=== PATIENT | male | born 1965 ===

== ENCOUNTER 2019-03-29 10:14 | Inpatient (IN) | payer OTHER, SELFPAY ==
[~2019-03-29 10:14] MED LIST: Heparin 1,000 UNITS/ML VIAL ONE
[2019-03-29 15:11] LABS: ALT (SGPT) 33 U/L (8-55); AST (SGOT) 51 U/L (5-34); Albumin 3.5 g/dL (3.5-5.0); Alkaline Phosphatase 85 U/L (40-110); Anion Gap 27 mmol/L (10-20); BUN (Urea Nitrogen) 103 mg/dL (8.4-25.7); Bilirubin, Total 0.9 mg/dL (0.2-1.2); Calc. Creatinine Clearance 0 mL/min (70-130); Calcium 7.4 mg/dL (7.8-10.44); Carbon Dioxide 18 mmol/L (22-29); Chloride 86 mmol/L (98-107); Estimated GFR-MDRD 3; Glucose 88 mg/dL (70-105); Protein, Total 7.5 g/dL (6.0-8.3); Sodium 124 mmol/L (136-145)
[2019-03-29 15:20] LABS: Potassium 6.9 mmol/L (3.5-5.1)
[2019-03-29 15:36] LABS: Hemoglobin 8.1 g/dL (14.0-18.0); MDiff Complete? YES; Mean Corpuscular HGB CONC 33.9 g/dL (32.0-36.0); Mean Corpuscular Hemoglobin 31.8 pg (27.0-31.0); Mean Corpuscular Volume 93.8 fL (78.0-98.0); Mean Platelet Volume 8.2 fL (7.4-10.4); Platelet Count 275 thou/uL (130-400); RBC Distribution Width 15.3 % (11.5-14.5); Red Blood Cell (RBC) Count 2.55 mill/uL (4.70-6.10); White Blood Cell (WBC) Count 26.8 thou/uL (4.8-10.8)
[2019-03-29 15:37] LABS: Band 1 % (5-11); Eosinophils 2 % (0-10); Lymphocytes 7 % (21-51); Monocytes 14 % (0-10); Neutrophil 76 % (42-75); Platelet Morphology Comment Appears Adequate; Target Cells SLIGHT = 2-5 cells (100X) (0-1/hpf)
[2019-03-29 17:18] LABS: HBSAg Index 0.26 S/CO (0-0.99); Hep B Surf Ag Non-Reactive S/CO (NonReactive)
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
[2019-03-29] MEDS: LOKELMA 10 GM PACKET PO SCH (20:36)
[2019-03-29 21:32] LABS: Potassium 5.8 mmol/L (3.5-5.1)
--- NOTE | 2019-03-30 00:10 | CON ---
DATE OF CONSULTATION: 03/29/2019 CONSULTING PHYSICIAN: Sharan Echols MD REASON FOR CONSULTATION: End-stage renal disease evaluation and care. REASON FOR ADMISSION: Shortness of breath. HISTORY OF PRESENT ILLNESS: A 53-year-old male, who was transferred from [facility] for further evaluation. He has end-stage renal disease and hypertension and was on dialysis Saturday, Saturday, Saturday. Since he was given MSSA suspicion of having after infection, he was transferred over here for further surgical opinion. The patient was fluid overloaded. Potassium was high and has had emergency dialysis. PAST MEDICAL HISTORY: Positive for end-stage renal disease, hypertension. PAST SURGICAL HISTORY: 1. AV fistula placement. 2. Knee arthroscopies. 3. Hip fractures. SOCIAL HISTORY: No smoking, alcohol, or illicit drug abuse. FAMILY HISTORY: Positive for liver disease. ALLERGIES: AMOXICILLIN, CEPHALOSPORIN, OPIOIDS. HOME MEDICATIONS: Reviewed. REVIEW OF SYSTEMS: CONSTITUTIONAL: Negative for weight loss or gain, ability to conduct usual activities. SKIN: Negative for rash, itching. EYES: Negative for double vision, pain. ENT/MOUTH: Negative for nose bleeding, neck stiffness, pain, tenderness. CARDIOVASCULAR: Negative for palpitations, dyspnea on exertion, orthopnea. RESPIRATORY: Negative for shortness of breath, wheezing, cough, hemoptysis, fever or night sweats. GASTROINTESTINAL: Negative for poor appetite, abdominal pain, heartburn, nausea, vomiting, constipation, or diarrhea. GENITOURINARY: Negative for urgency, frequency, dysuria, nocturia. MUSCULOSKELETAL: Negative for pain, swelling. NEUROLOGIC/PSYCHIATRIC: Negative for anxiety, depression. ALLERGY/IMMUNOLOGIC: Negative for skin rash, bleeding tendency. PHYSICAL EXAMINATION: GENERAL: This is a well-built male, in no apparent distress. VITAL SIGNS: Temperature 97.0, pulse 74, respiratory rate 20, blood pressure 117/55. HEENT: Atraumatic, normocephalic. Oral mucosa is moist. NECK: Supple. CV: S1 and S2 heard. Rate and rhythm regular. RESPIRATORY: Clear. GASTROINTESTINAL: Abdomen is soft. MUSCULOSKELETAL: 1+ edema. DERMATOLOGIC: No skin rash. NEUROLOGIC: Alert and awake. PSYCHIATRIC: Mood and affect normal. LABORATORY DATA: Hemoglobin is 8.1, potassium is 6.9, BUN is 103, creatinine is 18.05. ASSESSMENT AND PLAN: 1. End-stage renal disease. Plan is to have emergent dialysis if fistula works. If does not, might need declotting. 2. Edema, controlled. 3. History of hypertension. 4. Anemia of chronic disease. Plan to continue on dialysis as tolerated. Monitor labs closely. We will follow. Job ID: [id number]
[2019-03-30 01:14] LABS: Potassium 6.1 mmol/L (3.5-5.1)
[2019-03-30 04:12] LABS: Anion Gap 25 mmol/L (10-20); BUN (Urea Nitrogen) 95 mg/dL (8.4-25.7); Calc. Creatinine Clearance 7 mL/min (70-130); Calcium 7.8 mg/dL (7.8-10.44); Carbon Dioxide 20 mmol/L (22-29); Chloride 90 mmol/L (98-107); Estimated GFR-MDRD 3; Glucose 107 mg/dL (70-105); Potassium 5.6 mmol/L (3.5-5.1); Sodium 129 mmol/L (136-145)
--- NOTE | 2019-03-30 08:48 | RAD ---
SINGLE VIEW CHEST: Date: 03/30/2019 COMPARISON: None. HISTORY: Evaluate for infection. Cough. FINDINGS: Single view of the chest shows a normal sized cardiomediastinal silhouette. Opacity is seen obscuring the right hemidiaphragm and the right lower lobe. There is a questionable infiltrate in the retrocar diac region. Multiple stents are seen in the right upper extremity. IMPRESSION: Bibasilar infiltrates. POS: CET
[2019-03-30] MEDS ORDERED: Prevnar 13-Val Conj/PF 0.5 ML SYRINGE IM ONE (09:00)
[2019-03-30] MEDS: Stress 600 With Zinc 1 TAB PO SCH (09:00)
[2019-03-30] MEDS: LOKELMA 10 GM PACKET PO SCH ×2 (09:00→21:19)
[2019-03-30] MEDS: Midodrine HCl 5 MG TAB PO SCH (09:00)
[2019-03-30] MEDS: Cinacalcet HCl 30 MG TAB PO SCH (09:00)
[2019-03-30] MEDS ORDERED: FLU VACC QS2019-20(6MOS UP)/PF 60 MCG/0.5 ML SYRINGE IM ONE (09:00)
[2019-03-30] MEDS: Heparin 5,000 UNITS/ML VIAL SC SCH ×2 (09:01→21:18)
[2019-03-30] MEDS: Sevelamer Carbonate 800 MG TAB PO SCH ×3 (09:16→21:18)
[2019-03-30] MEDS ORDERED: Bisacodyl 10 MG SUPP PR PRN (09:54)
[2019-03-30] MEDS ORDERED: Ondansetron PF 4 MG/2 ML Vial IVP PRN (09:54)
[2019-03-30] MEDS ORDERED: Guaifenesin DM 100-10/5 ML UDCUP PO PRN (09:54)
[2019-03-30] MEDS ORDERED: HYDROcodone/Acetaminophen 5/325 mg Tablet PO PRN (09:54)
--- NOTE | 2019-03-30 10:01 | PDOC.HOSPP ---
- Subjective Encounter Date: 03/30/19 Encounter Time: 08:50 Subjective: lethargic but awakens easily, not oriented, follows some verbal stimuli - Objective Vital Signs & Weight: Vital Signs (12 hours) Temp Pulse Resp BP BP Pulse Ox 03/30/19 07:06 98.4 F 75 21 H 100/49 L 95 03/30/19 04:35 98.8 F 85 20 103/50 L 85 L 03/29/19 23:10 99.9 F H 94 16 147/71 H 96 Weight Weight 197 lb 1.492 oz I&O: 03/29/19 03/30/19 03/31/19 06:59 06:59 06:59 Intake Total 240 Output Total 0 Balance 240 Result Diagrams: 03/29/19 14:49 03/30/19 03:24 Hospitalist ROS - Medication Medications: Active Medications Generic Name Dose Route Start Last Admin Trade Name Freq PRN Reason Stop Dose Admin Heparin Sodium (Porcine) 5,000 units 03/30/19 09:00 03/30/19 09:01 Heparin SC 5,000 units Q12HR ASHLEY Administration Sodium Zirconium Cyclosilicate 5 gm 03/29/19 21:00 03/29/19 20:36 Lokelma PO 5 gm BID ASHLEY Administration - Exam General Appearance: ill appearing Eye: PERRL, anicteric sclera ENT: no oropharyngeal lesions, moist mucosa Neck: supple, no JVD Heart: RRR, murmur present Respiratory: no wheezes, rales, rhonchi Gastrointestinal: soft, non-tender, non-distended, normal bowel sounds Extremities: no cyanosis, 1+ LE edema Neurological: cranial nerve grossly intact, no focal deficits Hosp A/P (1) Uremia Code(s): N19 - UNSPECIFIED KIDNEY FAILURE Status: Acute (2) ESRD (end stage renal disease) on dialysis Code(s): N18.6 - END STAGE RENAL DISEASE; Z99.2 - DEPENDENCE ON RENAL DIALYSIS Status: Chronic (3) Acute metabolic encephalopathy Code(s): G93.41 - METABOLIC ENCEPHALOPATHY Status: Acute (4) MSSA bacteremia Code(s): R78.81 - BACTEREMIA Status: Acute (5) Sepsis Code(s): A41.9 - SEPSIS, UNSPECIFIED ORGANISM Status: Acute Qualifiers: Sepsis type: methicillin susceptible Staphylococcus aureus Sepsis acute organ dysfunction status: with acute organ dysfunction Severe sepsis acute organ dysfunction type: encephalopathy Severe sepsis shock status: without septic shock Qualified Code(s): A41.01 - Sepsis due to Methicillin susceptible Staphylococcus aureus; R65.20 - Severe sepsis without septic shock; G93.41 - Metabolic encephalopathy (6) HTN (hypertension) Code(s): I10 - ESSENTIAL (PRIMARY) HYPERTENSION Status: Chronic Qualifiers: Hypertension type: essential hypertension Qualified Code(s): I10 - Essential (primary) hypertension (7) Chronic anemia Code(s): D64.9 - ANEMIA, UNSPECIFIED Status: Chronic (8) Hyperkalemia Code(s): E87.5 - HYPERKALEMIA Status: Acute (9) Metabolic acidosis Code(s): E87.2 - ACIDOSIS Status: Acute - Plan had 2 hr session of HD yesterday and the AV graft got clogged His AV Fistula is not working in left UE d/w , plan is for IR to open up his graft if possible Will consult if his grafts need to be removed due to mssa bacteremia if there is no other source for it consult Pt is encephalopathic and has vol overload with hyperkalemia and uremia, will need urgent HD today continue current meds is on levaquin prognosis guarded May place him on soft restraints, d/w nuclear officer at bedside.
[2019-03-30] MEDS ORDERED: Activase 2 MG VIAL CATH SCH (11:15)
[2019-03-30] MEDS: Acetaminophen 325 MG TAB PO PRN ×2 (13:13→21:17)
--- NOTE | 2019-03-30 14:27 | SPC ---
Right upper extremity dialysis graft fistulogram Sonographic guided vascular access x2 Thrombolysis right upper extremity dialysis graft Percutaneous balloon angioplasty x3 right upper extremity dialysis graft HISTORY: Renal failure. Poor functioning of right upper extremity dialysis graft Fluoroscopy time 9.7 minutes. FINDINGS: After explaining the procedure and answering all questions, the right upper extremity was p repped and draped in usual sterile fashion. Sterile technique, buffered local anesthesia, sonographic guidance, and a 22-gauge needle were used to carefully access the right upper arm dialysi s graft loop on the arterial limb, directed towards the venous outflow. A 5 Greek dilator was placed, and then a 6 Greek sheath was placed. A 5 Greek Berenstein catheter was placed over a 0.035 Glidewire. Imaging showed extensive clot throughout the dialysis graft. The axillary and subclavian vessels and superior vena cava are patent. A second vascular access was obtained with sonographic guidance on the venous limb, directed towards the arterial inflow. 6 Greek sheath was placed. The 5 Greek Berenstein catheter was carefully advanced to the arterial anastomosis. Gentle contrast imaging showed focal areas of high-grade stenos is near the arterial inflow. Clot was present throughout the arterial limb, to the level of the arterial anastomosis which was widely patent. A total of 10 cc liquid containing 4 mg recombinant TPA and 2000 units heparin was carefully placed t hroughout the entirety of the clotted graft. While the clot was left to bathe in the TPA, a 6 mm x 4 cm dilatation balloon was carefully placed over a glide wire to the focal areas of high grade steno ses near the arterial limb. Full bone profile was eventually achieved, relieving the stenoses. The balloon was also sequentially inflated within the apex of the graft and within the venous outflow, re lieving additional strictures and macerating the clot within the graft. Repeat imaging showed significant residual narrowing and significant residual clot throughout the gra ft. An 8 mm x 4 cm balloon was then carefully placed to the areas of high-grade stenoses. Full bone profi le was eventually achieved. Successful relief of the stenoses. The 8 mm balloon was also inflated throughout the apex of the graft and the venous outflow to macerate the clot and further relief steno ses. Balloon was removed. Final imaging showed the graft to be widely patent, although there is marked irregularity of the inner wall of the graft. Contrast material seen around the graft lumen is favored to represent leakage of contrast during initial injections through the recent puncture sites from attempt at dialysis. Sheaths were removed and hemostasis obtained using direct pressure. Patient tolerated the procedure w ell and was returned in unchanged condition. IMPRESSION: Technically successful thrombolysis and angioplasty of right upper extremity dialysis Paulina almonte restoring flow and function.
[2019-03-30] MEDS ORDERED: Iopamidol 300 61% 100 ML VIAL FS ONE (16:44)
--- NOTE | 2019-03-30 16:58 | PRG ---
DATE OF SERVICE: 03/30/2019 SUBJECTIVE: Patient was seen and examined at bedside and overnight events noted. Patient denies any shortness of breath or chest pain or palpitation. No history of nausea or vomiting or diarrhea or fever or chills or cramps. OBJECTIVE: GENERAL: This is a well-built male, in no apparent distress. VITAL SIGNS: Temperature 98.4. Heart rate 75. Respiratory rate 18. Blood pressure 100/49. HEENT: Atraumatic, normocephalic. Oral mucosa is moist NECK: Supple. CARDIOVASCULAR: S1, S2 heard. Rate and rhythm regular. RESPIRATORY: Clear to auscultation. GASTROINTESTINAL: Abdomen is soft. MUSCULOSKELETAL: No tenderness. No edema. DERMATOLOGIC: No skin rash. NEUROLOGIC: Alert and awake and oriented X3. No focal neurologic deficits. Moving all the extremities. PSYCHIATRIC: Mood and affect normal. LABORATORY DATA: Potassium is 5.6, BUN is 95, creatinine is 16.2. ASSESSMENT AND PLAN: 1. End-stage renal disease. Plan is to continue dialysis on Saturday, Saturday, and Saturday. Unfortunately, the patient had a clotted fistula this morning and fortunately IR was able to declot it today. Appreciate help from Interventional Radiology. Possible dialysis access infection. Follow up with Surgery and ID. 2. History of . 3. Anemia of chronic disease. 4. Bacteremia. Follow up cultures and continue antibiotics. PLAN: Plan is to continue dialysis on Saturday, Saturday, and Saturday. Job ID: [id number]
[2019-03-30] MEDS: Senokot S 8.6-50 MG TAB PO PRN (18:13)
[2019-03-30] MEDS: Gabapentin 300 MG CAP PO SCH (21:18)
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
[2019-03-31 05:05] LABS: ALT (SGPT) 28 U/L (8-55); AST (SGOT) 48 U/L (5-34); Albumin 3.4 g/dL (3.5-5.0); Alkaline Phosphatase 83 U/L (40-110); Anion Gap 24 mmol/L (10-20); BUN (Urea Nitrogen) 54 mg/dL (8.4-25.7); BUN/Creatinine Ratio 4.82; Bilirubin, Total 0.9 mg/dL (0.2-1.2); Calc. Creatinine Clearance 10 mL/min (70-130); Calcium 7.7 mg/dL (7.8-10.44); Carbon Dioxide 22 mmol/L (22-29); Chloride 91 mmol/L (98-107); Estimated GFR-MDRD 5; Globulin 4.4 g/dL (2.4-3.5); Glucose 107 mg/dL (70-105); Phosphorus 4.9 mg/dL (2.3-4.7); Potassium 4.6 mmol/L (3.5-5.1); Protein, Total 7.8 g/dL (6.0-8.3); Sodium 132 mmol/L (136-145)
[2019-03-31 05:20] LABS: Eosinophils 1 % (0-10); Hemoglobin 7.7 g/dL (14.0-18.0); Lymphocytes 11 % (21-51); MDiff Complete? YES; Mean Corpuscular HGB CONC 33.6 g/dL (32.0-36.0); Mean Corpuscular Hemoglobin 31.1 pg (27.0-31.0); Mean Corpuscular Volume 92.6 fL (78.0-98.0); Mean Platelet Volume 7.4 fL (7.4-10.4); Monocytes 8 % (0-10); Neutrophil 80 % (42-75); Platelet Count 323 thou/uL (130-400); RBC Distribution Width 15.1 % (11.5-14.5); Red Blood Cell (RBC) Count 2.46 mill/uL (4.70-6.10); Target Cells MODERATE= 6-15 cells (100X) (0-1/hpf); Toxic Granulation SLIGHT; White Blood Cell (WBC) Count 24.3 thou/uL (4.8-10.8)
[2019-03-31] MEDS ORDERED: Vancomycin HCl 1.25 GM in Sodium Chloride 0.9% 250 ML 250 ML IVPB SCH ×2 (07:45→08:00)
[2019-03-31] MEDS ORDERED: Vancomycin HCl 500 MG in Sodium Chloride 0.9% 100 ML IVPB SCH (07:45)
[2019-03-31] MEDS ORDERED: Vancomycin HCl 1.25 GM in Sodium Chloride 0.9% 250 ML 300 ML IVPB SCH (07:45)
[2019-03-31] MEDS ORDERED: HOLD VANCOMYCIN FOR LEVEL >20 FS SCH (07:45)
[2019-03-31] MEDS ORDERED: Vancomycin HCl 1 GM in Premix Bag 1 BAG IVPB SCH (07:45)
[2019-03-31] MEDS: Cinacalcet HCl 30 MG TAB PO SCH (08:57)
[2019-03-31] MEDS: Stress 600 With Zinc 1 TAB PO SCH (08:57)
[2019-03-31] MEDS: Heparin 5,000 UNITS/ML VIAL SC SCH ×2 (08:57→21:06)
[2019-03-31] MEDS: LOKELMA 10 GM PACKET PO SCH ×2 (08:58→21:24)
--- NOTE | 2019-03-31 09:24 | ULT ---
Venous duplex sonogram for vein mapping HISTORY: Renal failure. Failure of multiple dialysis fistula. FINDINGS: Right: Good color and spectral Doppler flow within the internal jugular and subclavian veins. Cephali c vein above the upper arm fistula is 0.4 cm with good color and spectral Doppler flow. The cephalic vein distal to this level and most of the basilic vein are clotted, obscured, and distor ilir due to the multiple previous fistulas. The antecubital vein is measured at 0.1 cm. Veins of the forearm appear to represent collaterals around the clotted fistulas. Flow is seen within the brachial artery to the level of the arteriovenous anastomosis. The brachial artery beyond this point and the ulnar and radial arteries are obscured. Left: Good color and spectral Doppler flow within the arterial structures. Brachial artery 0.5 cm. Ra dial artery 0.2 cm. Ulnar artery 0.2 cm. The internal jugular, subclavian, and axillary vein are patent. Brachial vein mostly obscured. Cephal ic vein is thrombosed, distorted, and obscured due to multiple previous vascular procedures. The basilic vein is patent within the upper arm, measuring 0.5 cm at the level of the proximal humeru s and 0.3 cm at the mid to distal humerus and antecubital fossa. Basilic vein of the forearm is obscured. IMPRESSION: Patent fistula right upper arm. Multiple clotted old fistulous throughout each arm. This distorts and obscures most of the venous structures, many of which are clotted, as there are multiple collaterals throughout the superficial tissues of each arm. For the purposes of any additional hemodialysis vascular access, the only apparent possibility would be a left upper arm fistula from the brachial artery to the basilic vein.
--- NOTE | 2019-03-31 09:26 | CT ---
CT CHEST WITHOUT CONTRAST: Date: 03/31/2019 HISTORY: Abnormal lung exam. Bacteremia. Fever. FINDINGS: Absence of IV contrast reduces the sensitivity of exam, particularly for evaluation of mediastinal, h ilar, and vascular structures. There are vascular calcifications without evidence of aneurysmal dilatation of the thoracic aorta. No pleural or pericardial effusions are seen. There is consolidation in the lower lobes bilaterally, ri ght larger than left. There are air bronchograms in the right consolidation. No pneumothoraces are se en. The tracheobronchial tree appears patent. There are degenerative changes in the spine. There are vascular stents and changes of dialysis fistula in the right upper extremity. Upper abdominal tomogra ms demonstrate atrophic kidneys and renal cysts. IMPRESSION: Bibasilar consolidation, right greater than left, suspicious for pneumonia. POS: OFF
[2019-03-31] MEDS: Sevelamer Carbonate 800 MG TAB PO SCH ×3 (10:18→21:06)
--- NOTE | 2019-03-31 11:02 | PDOC.HOSPP ---
- Subjective Encounter Date: 03/31/19 Encounter Time: 09:45 Subjective: more awake and oriented this am follows verbal stimuli c/p left foot pain - Objective Vital Signs & Weight: Vital Signs (12 hours) Temp Pulse Resp BP BP Pulse Ox 03/31/19 08:00 99.0 F 75 22 H 106/50 L 94 L 03/31/19 07:30 96 03/31/19 03:43 97.2 F L 74 20 92/48 L 93 L 03/31/19 00:00 98.9 F 76 18 106/46 L 97 03/30/19 23:52 101.0 F H 83 20 Weight Weight 176 lb 5.917 oz I&O: 03/30/19 03/31/19 04/01/19 06:59 06:59 06:59 Intake Total 240 550 Output Total 0 2900 Balance 240 -2350 Result Diagrams: 03/31/19 04:33 03/31/19 04:33 Hospitalist ROS - Medication Medications: Active Medications Generic Name Dose Route Start Last Admin Trade Name Freq PRN Reason Stop Dose Admin Acetaminophen 650 mg 03/30/19 09:54 03/30/19 21:17 Tylenol PO 650 mg Q4H PRN Administration Headache/Fever/Mild Pain (1-3) Cinacalcet 60 mg 03/30/19 09:00 03/31/19 08:57 Sensipar PO 60 mg DAILY ASHLEY Administration Gabapentin 300 mg 03/30/19 21:00 03/30/19 21:18 Neurontin PO 300 mg HS ASHLEY Administration Heparin Sodium (Porcine) 5,000 units 03/30/19 09:00 03/31/19 08:57 Heparin SC 5,000 units Q12HR ASHLEY Administration Midodrine 10 mg 03/30/19 09:00 03/30/19 09:00 Proamatine PO Not Given [email or web address] ASHLEY Multivitamins/Zinc 1 tab 03/30/19 09:00 03/31/19 08:57 Stress 600 With Zinc PO 1 tab DAILY ASHLEY Administration Pantoprazole Sodium 40 mg 03/30/19 09:00 03/31/19 08:56 Protonix PO 40 mg DAILY ASHLEY Administration Senna/Docusate Sodium 2 tab 03/30/19 09:54 03/30/19 18:13 Senokot S PO 2 tab BIDPRN PRN Administration Constipation Sevelamer Carbonate 4,000 mg 03/30/19 09:00 03/31/19 10:18 Renvela PO 4,000 mg TID ASHLEY Administration Sodium Zirconium Cyclosilicate 5 gm 03/29/19 21:00 03/31/19 08:58 Lokelma PO 5 gm BID ASHLEY Administration - Exam General Appearance: awake alert Eye: PERRL, anicteric sclera ENT: no oropharyngeal lesions, moist mucosa Neck: supple, no JVD Heart: RRR, no gallops Respiratory: no wheezes, no rales, rhonchi Gastrointestinal: soft, non-tender, non-distended, normal bowel sounds Extremities: 1+ LE edema Extremities - other findings: right UE HD access site has skin ulcers/weeping a bit Neurological: cranial nerve grossly intact, no focal deficits Hosp A/P (1) Uremia Code(s): N19 - UNSPECIFIED KIDNEY FAILURE Status: Resolved (2) ESRD (end stage renal disease) on dialysis Code(s): N18.6 - END STAGE RENAL DISEASE; Z99.2 - DEPENDENCE ON RENAL DIALYSIS Status: Chronic (3) Acute metabolic encephalopathy Code(s): G93.41 - METABOLIC ENCEPHALOPATHY Status: Acute (4) MSSA bacteremia Code(s): R78.81 - BACTEREMIA Status: Acute (5) Sepsis Code(s): A41.9 - SEPSIS, UNSPECIFIED ORGANISM Status: Acute Qualifiers: Sepsis type: methicillin susceptible Staphylococcus aureus Sepsis acute organ dysfunction status: with acute organ dysfunction Severe sepsis acute organ dysfunction type: encephalopathy Severe sepsis shock status: without septic shock Qualified Code(s): A41.01 - Sepsis due to Methicillin susceptible Staphylococcus aureus; R65.20 - Severe sepsis without septic shock; G93.41 - Metabolic encephalopathy (6) HTN (hypertension) Code(s): I10 - ESSENTIAL (PRIMARY) HYPERTENSION Status: Chronic Qualifiers: Hypertension type: essential hypertension Qualified Code(s): I10 - Essential (primary) hypertension (7) Chronic anemia Code(s): D64.9 - ANEMIA, UNSPECIFIED Status: Chronic (8) Hyperkalemia Code(s): E87.5 - HYPERKALEMIA Status: Acute (9) Metabolic acidosis Code(s): E87.2 - ACIDOSIS Status: Acute (10) PNA (pneumonia) Code(s): J18.9 - PNEUMONIA, UNSPECIFIED ORGANISM Status: Acute Qualifiers: Pneumonia type: due to methicillin-sensitive Staphylococcus aureus (MSSA) Laterality: right Lung location: lower lobe of lung Qualified Code(s): J15.211 - Pneumonia due to Methicillin susceptible Staphylococcus aureus (11) Physical deconditioning Code(s): R53.81 - OTHER MALAISE Status: Acute - Plan Had HD yesterday with removal of 3 lts fluids, will have another 2 hr session today, vanc can be given with HD His AV Fistula is not working in left UE both AV grafts in right UE were opened up by IR which had thrombus Appreciate help from and Encephalopathy is clearing up continue current meds is on levaquin po wound care for right UE wounds, PT/OT to mobilize, may need infirmary for dc plan in 48hrs echo is pending to r/o endocarditis CT chest shows pna. patient has been on HD for atleast 20yrs or so per . He says he may not be allergic to pcn and has taken it for prior h/o venereal disease when he was younger?
--- NOTE | 2019-03-31 12:58 | PRG ---
DATE OF SERVICE: 03/31/2019 SUBJECTIVE: Patient was seen and examined at bedside and overnight events noted. Patient denies any shortness of breath or chest pain or palpitation. No history of nausea or vomiting or diarrhea or fever or chills or cramps. OBJECTIVE: GENERAL: This is a well-built male, in no apparent distress. VITAL SIGNS: Temperature heart rate 74, respiratory rate 18, blood pressure 106/50. HEENT: Atraumatic, normocephalic. Oral mucosa is moist NECK: Supple. CARDIOVASCULAR: S1, S2 heard. Rate and rhythm regular. RESPIRATORY: Clear to auscultation. GASTROINTESTINAL: Abdomen is soft. MUSCULOSKELETAL: No tenderness. No edema. DERMATOLOGIC: No skin rash. NEUROLOGIC: Alert and awake and oriented X3. No focal neurologic deficits. Moving all the extremities. PSYCHIATRIC: Mood and affect normal. LABORATORY DATA: Potassium 4.6, BUN is 54, creatinine is 7.2, and sodium 132. ASSESSMENT AND PLAN: 1. End-stage renal disease. We will continue on dialysis. Plan is to have 2 hours of dialysis today with vancomycin. 2. History of anemia. 3. History of hypertension. 4. Bacteremia. 5. Edema, controlled. 6. Hyperkalemia, better. 7. Hyponatremia, stable. 8. . 9. Labs are stable. Appreciate help from Interventional Radiology. Plan to have dialysis today, then continue dialysis on Saturday, Saturday, and Saturday as tolerated. Job ID: [id number]
--- NOTE | 2019-03-31 17:22 | PRG ---
DATE OF SERVICE: 03/31/2019 SUBJECTIVE: Lucien is much more alert. He is able to have a conversation and is little bit disoriented still. No headaches. No back pain. No dyspnea or abdominal pain. Does not have urine output. OBJECTIVE: VITAL SIGNS: His T-max 101.3 yesterday and since then, his temperature seems to be coming down, pulse 98, O2 saturation 88%, blood pressure 107/48. GENERAL: Awake, appears in no distress. He is able to establish eye contact easily today compared with yesterday. No back tenderness. No shoulder tenderness. No knee tenderness. No sternoclavicular joint tenderness. LUNGS: With symmetric clear breath sounds. Still with, I can only auscultate S1, but I cannot hear any S2. LABORATORY DATA: Blood cultures obtained here in [place] are from the 5th, there are still no growth for 48 hours. White cell count is 24,000, hemoglobin 7.7, platelets 323. AST 48, ALT 28, alkaline phosphatase 83. A chest CT was completed and it showed bibasilar consolidation suspicious for pneumonia, some air bronchograms. ASSESSMENT AND DISCUSSION: 1. End-stage renal disease of uncertain etiology associated with hypertension. Dysfunction of right AV graft, which required vascular intervention with fibrinolytic agent and angioplasty with improvement of dialysis access. 2. Staphylococcus aureus bacteremia from [place], pneumonia, possible endocarditis. I believe eventually he is going to need a MARIBELL to rule out endocarditis. Continue vancomycin and quinolone in view of the history of severe allergic reaction to cephalosporins and amoxicillin. He will likely need extended therapy at least 4 weeks if not longer depending on results of MARIBELL with sliding scale, vancomycin, oral quinolone adjusted for renal function. Job ID: [id number]
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
[2019-03-31] MEDS: Gabapentin 300 MG CAP PO SCH (21:06)
[2019-04-01] MEDS: Senokot S 8.6-50 MG TAB PO PRN (01:37)
[2019-04-01] MEDS: Acetaminophen 325 MG TAB PO PRN ×2 (03:53→19:55)
[2019-04-01 05:00] LABS: ALT (SGPT) 29 U/L (8-55); AST (SGOT) 43 U/L (5-34); Albumin 3.3 g/dL (3.5-5.0); Alkaline Phosphatase 75 U/L (40-110); Anion Gap 18 mmol/L (10-20); BUN (Urea Nitrogen) 46 mg/dL (8.4-25.7); Bilirubin, Total 0.7 mg/dL (0.2-1.2); Calc. Creatinine Clearance 10 mL/min (70-130); Calcium 7.5 mg/dL (7.8-10.44); Carbon Dioxide 28 mmol/L (22-29); Chloride 91 mmol/L (98-107); Estimated GFR-MDRD 5; Globulin 4.4 g/dL (2.4-3.5); Glucose 103 mg/dL (70-105); Phosphorus 4.1 mg/dL (2.3-4.7); Potassium 4.1 mmol/L (3.5-5.1); Protein, Total 7.7 g/dL (6.0-8.3); Sodium 133 mmol/L (136-145)
[2019-04-01 08:17] LABS: Vancomycin, Random 16.9 ug/mL (See Comment)
--- NOTE | 2019-04-01 10:47 | PDOC.HOSPP ---
- Subjective Encounter Date: 04/01/19 Encounter Time: 08:30 Subjective: is getting HD, lethargic, falls asleep soon after waking up no sob HD access is working well per HD Nurse. - Objective Vital Signs & Weight: Vital Signs (12 hours) Temp Pulse Resp BP Pulse Ox 04/01/19 08:00 98.1 F 75 20 101/42 L 97 04/01/19 06:30 98.2 F 04/01/19 03:36 100.8 F H 85 20 115/56 L 94 L 04/01/19 00:00 92 L Weight Admit Weight 199 lb 15.348 oz Weight 160 lb 6.4 oz I&O: 03/31/19 04/01/19 04/02/19 06:59 06:59 06:59 Intake Total 550 1040 Output Total 2900 0 Balance -2350 1040 Result Diagrams: 03/31/19 04:33 04/01/19 04:23 Hospitalist ROS - Medication Medications: Active Medications Generic Name Dose Route Start Last Admin Trade Name Freq PRN Reason Stop Dose Admin Acetaminophen 650 mg 03/30/19 09:54 04/01/19 03:53 Tylenol PO 650 mg Q4H PRN Administration Headache/Fever/Mild Pain (1-3) Cinacalcet 60 mg 03/30/19 09:00 03/31/19 08:57 Sensipar PO 60 mg DAILY ASHLEY Administration Gabapentin 300 mg 03/30/19 21:00 03/31/19 21:06 Neurontin PO 300 mg HS ASHLEY Administration Heparin Sodium (Porcine) 5,000 units 03/30/19 09:00 03/31/19 21:06 Heparin SC 5,000 units Q12HR ASHLEY Administration Vancomycin HCl 500 mg/ Sodium 100 mls @ 100 mls/hr 03/31/19 07:45 04/01/19 09 :54 Chloride IVPB 100 mls WILLCALL AHSLEY Administration Midodrine 10 mg 03/30/19 09:00 03/30/19 09:00 Proamatine PO Not Given [email or web address] ASHLEY Multivitamins/Zinc 1 tab 03/30/19 09:00 03/31/19 08:57 Stress 600 With Zinc PO 1 tab DAILY ASHLEY Administration Pantoprazole Sodium 40 mg 03/30/19 09:00 03/31/19 08:56 Protonix PO 40 mg DAILY ASHLEY Administration Senna/Docusate Sodium 2 tab 03/30/19 09:54 04/01/19 01:37 Senokot S PO 2 tab BIDPRN PRN Administration Constipation Sevelamer Carbonate 4,000 mg 03/30/19 09:00 03/31/19 21:06 Renvela PO 4,000 mg TID ASHLEY Administration Sodium Zirconium Cyclosilicate 5 gm 03/29/19 21:00 03/31/19 21:24 Lokelma PO 5 gm BID ASHLEY Administration - Exam General Appearance: ill appearing Eye: PERRL, anicteric sclera ENT: no oropharyngeal lesions, moist mucosa Neck: supple, no JVD Heart: RRR, no gallops Respiratory: no wheezes, no rales, rhonchi Gastrointestinal: soft, non-tender, non-distended, normal bowel sounds Extremities - other findings: b/l UE edema especially around arm and elbows Neurological: cranial nerve grossly intact, no focal deficits Hosp A/P (1) Uremia Code(s): N19 - UNSPECIFIED KIDNEY FAILURE Status: Resolved (2) ESRD (end stage renal disease) on dialysis Code(s): N18.6 - END STAGE RENAL DISEASE; Z99.2 - DEPENDENCE ON RENAL DIALYSIS Status: Chronic (3) Acute metabolic encephalopathy Code(s): G93.41 - METABOLIC ENCEPHALOPATHY Status: Acute (4) MSSA bacteremia Code(s): R78.81 - BACTEREMIA Status: Acute (5) Sepsis Code(s): A41.9 - SEPSIS, UNSPECIFIED ORGANISM Status: Acute Qualifiers: Sepsis type: methicillin susceptible Staphylococcus aureus Sepsis acute organ dysfunction status: with acute organ dysfunction Severe sepsis acute organ dysfunction type: encephalopathy Severe sepsis shock status: without septic shock Qualified Code(s): A41.01 - Sepsis due to Methicillin susceptible Staphylococcus aureus; R65.20 - Severe sepsis without septic shock; G93.41 - Metabolic encephalopathy (6) HTN (hypertension) Code(s): I10 - ESSENTIAL (PRIMARY) HYPERTENSION Status: Chronic Qualifiers: Hypertension type: essential hypertension Qualified Code(s): I10 - Essential (primary) hypertension (7) Chronic anemia Code(s): D64.9 - ANEMIA, UNSPECIFIED Status: Chronic (8) Hyperkalemia Code(s): E87.5 - HYPERKALEMIA Status: Resolved (9) Metabolic acidosis Code(s): E87.2 - ACIDOSIS Status: Resolved (10) PNA (pneumonia) Code(s): J18.9 - PNEUMONIA, UNSPECIFIED ORGANISM Status: Acute Qualifiers: Pneumonia type: due to methicillin-sensitive Staphylococcus aureus (MSSA) Laterality: right Lung location: lower lobe of lung Qualified Code(s): J15.211 - Pneumonia due to Methicillin susceptible Staphylococcus aureus (11) Physical deconditioning Code(s): R53.81 - OTHER MALAISE Status: Acute - Plan Has had back to back HD x 3 days now vanc with HD, oral levaquin dc norco and avoid narcotics due to lethargic. His AV Fistula is not working in left UE both AV grafts in right UE were opened up by IR which had thrombus Appreciate help from and Encephalopathy is clearing up but still lethargic, ?SCOOTER continue current meds wound care for right UE wounds, PT/OT to mobilize, may need infirmary for dc plan in 48hrs echo is pending to r/o endocarditis, may need MARIBELL if TTE is -ve CT chest shows pna. patient has been on HD for atleast 20yrs or so per . He says he may not be allergic to pcn and has taken it for prior h/o venereal disease when he was younger?
[2019-04-01] MEDS: Cinacalcet HCl 30 MG TAB PO SCH (11:44)
[2019-04-01] MEDS: Midodrine HCl 5 MG TAB PO SCH (11:44)
[2019-04-01] MEDS: Sevelamer Carbonate 800 MG TAB PO SCH ×4 (11:44→20:40)
[2019-04-01] MEDS: Heparin 5,000 UNITS/ML VIAL SC SCH ×2 (11:47→20:34)
[2019-04-01] MEDS: Stress 600 With Zinc 1 TAB PO SCH (12:17)
[2019-04-01] MEDS: LOKELMA 10 GM PACKET PO SCH (12:17)
--- NOTE | 2019-04-01 18:55 | PRG ---
DATE OF SERVICE: 04/01/2019 SUBJECTIVE: Patient was seen and examined at bedside and overnight events noted. Patient denies any shortness of breath or chest pain or palpitation. No history of nausea or vomiting or diarrhea or fever or chills or cramps. OBJECTIVE: GENERAL: This is a well-built male, in no apparent distress. VITAL SIGNS: Temperature 98.8. Heart rate 85. Respiratory rate 20. Blood pressure 127/57. HEENT: Atraumatic, normocephalic. Oral mucosa is moist NECK: Supple. CARDIOVASCULAR: S1, S2 heard. Rate and rhythm regular. RESPIRATORY: Clear to auscultation. GASTROINTESTINAL: Abdomen is soft. MUSCULOSKELETAL: No tenderness. No edema. DERMATOLOGIC: No skin rash. NEUROLOGIC: Alert and awake and oriented X3. No focal neurologic deficits. Moving all the extremities. PSYCHIATRIC: Mood and affect normal. LABORATORY DATA: Potassium 4.1, BUN is 46, creatinine is 10.2. ASSESSMENT AND PLAN: 1. End-stage renal disease. Continue on hemodialysis as tolerated. 2. Edema, controlled. 3. History of anemia. 4. Hypertension. 5. Hyperkalemia, better. 6. Hyponatremia, better. 7. Continue dialysis as tolerated. Job ID: [id number]
[2019-04-02 05:03] LABS: Albumin 3.1 g/dL (3.5-5.0); Anion Gap 20 mmol/L (10-20); BUN (Urea Nitrogen) 32 mg/dL (8.4-25.7); BUN/Creatinine Ratio 4.25; Calc. Creatinine Clearance 12 mL/min (70-130); Carbon Dioxide 23 mmol/L (22-29); Chloride 95 mmol/L (98-107); Estimated GFR-MDRD 8; Glucose 94 mg/dL (70-105); Phosphorus 3.5 mg/dL (2.3-4.7); Potassium 4.6 mmol/L (3.5-5.1); Sodium 133 mmol/L (136-145)
[2019-04-02 05:25] LABS: Band 2 % (5-11); Eosinophils 1 % (0-10); Hemoglobin 6.7 g/dL (14.0-18.0); Lymphocytes 7 % (21-51); MDiff Complete? YES; Mean Corpuscular HGB CONC 30.8 g/dL (32.0-36.0); Mean Corpuscular Hemoglobin 28.9 pg (27.0-31.0); Mean Corpuscular Volume 93.9 fL (78.0-98.0); Monocytes 7 % (0-10); Neutrophil 83 % (42-75); Platelet Count 188 thou/uL (130-400); RBC Distribution Width 15.8 % (11.5-14.5); Red Blood Cell (RBC) Count 2.33 mill/uL (4.70-6.10); Target Cells SLIGHT = 2-5 cells (100X) (0-1/hpf); White Blood Cell (WBC) Count 14.2 thou/uL (4.8-10.8)
[2019-04-02] MEDS ORDERED: PROPOFOL 200 MG/20 ML VIAL ONE (09:20)
[2019-04-02] MEDS: Heparin 5,000 UNITS/ML VIAL SC SCH ×2 (09:50→20:40)
--- NOTE | 2019-04-02 11:05 | PDOC.HOSPP ---
- Subjective Encounter Date: 04/02/19 Encounter Time: 09:30 Subjective: awake, no new complaints has not ambulated yet, PT didn't ambulate him due to sbp in the 80's? - Objective Vital Signs & Weight: Vital Signs (12 hours) Temp Pulse Resp BP BP Pulse Ox 04/02/19 08:53 99.7 F H 82 18 97/50 L 95 04/02/19 04:00 99.3 F 87 18 104/52 L 93 L 04/02/19 00:00 99.3 F Weight Admit Weight 199 lb 15.348 oz Weight 181 lb 7.047 oz I&O: 04/01/19 04/02/19 04/03/19 06:59 06:59 06:59 Intake Total 1040 800 Output Total 0 Balance 1040 800 Result Diagrams: 04/02/19 04:24 04/02/19 04:24 Hospitalist ROS - Medication Medications: Active Medications Generic Name Dose Route Start Last Admin Trade Name Freq PRN Reason Stop Dose Admin Acetaminophen 650 mg 03/30/19 09:54 04/01/19 19:55 Tylenol PO 650 mg Q4H PRN Administration Headache/Fever/Mild Pain (1-3) Cinacalcet 60 mg 03/30/19 09:00 04/01/19 11:44 Sensipar PO 60 mg DAILY ASHLEY Administration Heparin Sodium (Porcine) 5,000 units 03/30/19 09:00 04/02/19 09:50 Heparin SC Not Given Q12HR ASHLEY Vancomycin HCl 500 mg/ Sodium 100 mls @ 100 mls/hr 03/31/19 07:45 04/01/19 09 :54 Chloride IVPB 100 mls WILLCALL ASHLEY Administration Levofloxacin 500 mg 04/01/19 18:00 04/01/19 18:11 Levaquin PO 500 mg Q2D ASHLEY Administration Midodrine 10 mg 03/30/19 09:00 04/01/19 11:44 Proamatine PO 10 mg [email or web address] ASHLEY Administration Pantoprazole Sodium 40 mg 03/30/19 09:00 04/01/19 11:44 Protonix PO 40 mg DAILY ASHLEY Administration Senna/Docusate Sodium 2 tab 03/30/19 09:54 04/01/19 01:37 Senokot S PO 2 tab BIDPRN PRN Administration Constipation Sevelamer Carbonate 4,000 mg 03/30/19 09:00 04/01/19 20:40 Renvela PO Not Given TID ASHLEY - Exam General Appearance: awake alert Eye: PERRL, anicteric sclera ENT: no oropharyngeal lesions, moist mucosa Neck: supple, no JVD Heart: RRR, no murmur Respiratory: no wheezes, no rales Gastrointestinal: soft, non-tender, non-distended, normal bowel sounds Extremities: no cyanosis, 1+ LE edema Neurological: cranial nerve grossly intact, no focal deficits Hosp A/P (1) Uremia Code(s): N19 - UNSPECIFIED KIDNEY FAILURE Status: Resolved (2) ESRD (end stage renal disease) on dialysis Code(s): N18.6 - END STAGE RENAL DISEASE; Z99.2 - DEPENDENCE ON RENAL DIALYSIS Status: Chronic (3) Acute metabolic encephalopathy Code(s): G93.41 - METABOLIC ENCEPHALOPATHY Status: Acute (4) MSSA bacteremia Code(s): R78.81 - BACTEREMIA Status: Acute (5) Sepsis Code(s): A41.9 - SEPSIS, UNSPECIFIED ORGANISM Status: Acute Qualifiers: Sepsis type: methicillin susceptible Staphylococcus aureus Sepsis acute organ dysfunction status: with acute organ dysfunction Severe sepsis acute organ dysfunction type: encephalopathy Severe sepsis shock status: without septic shock Qualified Code(s): A41.01 - Sepsis due to Methicillin susceptible Staphylococcus aureus; R65.20 - Severe sepsis without septic shock; G93.41 - Metabolic encephalopathy (6) HTN (hypertension) Code(s): I10 - ESSENTIAL (PRIMARY) HYPERTENSION Status: Chronic Qualifiers: Hypertension type: essential hypertension Qualified Code(s): I10 - Essential (primary) hypertension (7) Chronic anemia Code(s): D64.9 - ANEMIA, UNSPECIFIED Status: Chronic (8) Hyperkalemia Code(s): E87.5 - HYPERKALEMIA Status: Resolved (9) Metabolic acidosis Code(s): E87.2 - ACIDOSIS Status: Resolved (10) PNA (pneumonia) Code(s): J18.9 - PNEUMONIA, UNSPECIFIED ORGANISM Status: Acute Qualifiers: Pneumonia type: due to methicillin-sensitive Staphylococcus aureus (MSSA) Laterality: right Lung location: lower lobe of lung Qualified Code(s): J15.211 - Pneumonia due to Methicillin susceptible Staphylococcus aureus (11) Physical deconditioning Code(s): R53.81 - OTHER MALAISE Status: Acute - Plan Has had back to back HD x 3 days, next HD in am, will recieve 1 u prbc tomorrow with HD vanc with HD, oral levaquin His AV Fistula is not working in left UE both AV grafts in right UE were opened up by IR which had thrombus Appreciate help from and Encephalopathy is clearing up but still lethargic, ?SCOOTER continue current meds wound care for right UE wounds, PT/OT to mobilize, may need [facility] for dc plan For MARIBELL today to r/o endocarditis, if -ve may tx to med floor. CT chest shows pna. patient has been on HD for atleast 20yrs or so per . He says he may not be allergic to pcn and has taken it for prior h/o venereal disease when he was younger? PT has to mobilize pt as tolerated in hallway/oob to chair
[2019-04-02] MEDS: Sevelamer Carbonate 800 MG TAB PO SCH ×3 (11:20→20:44)
[2019-04-02] MEDS ORDERED: Ketamine 50 MG/ML (10ML VIAL) ONE (11:45)
[2019-04-02] MEDS ORDERED: PROPOFOL 20 ML ONE (12:20)
--- NOTE | 2019-04-02 12:49 | PRG ---
DATE OF SERVICE: 04/02/2019 SUBJECTIVE: Patient was seen and examined at bedside and overnight events noted. Patient denies any shortness of breath or chest pain or palpitation. No history of nausea or vomiting or diarrhea or fever or chills or cramps. OBJECTIVE: GENERAL: This is a well-built male, in no apparent distress. VITAL SIGNS: Temperature 99.3, pulse 87, respiratory rate 18, and blood pressure 104/52. HEENT: Atraumatic, normocephalic. Oral mucosa is moist NECK: Supple. CARDIOVASCULAR: S1, S2 heard. Rate and rhythm regular. RESPIRATORY: Clear to auscultation. GASTROINTESTINAL: Abdomen is soft. MUSCULOSKELETAL: No tenderness. No edema. DERMATOLOGIC: No skin rash. NEUROLOGIC: Alert and awake and oriented X3. No focal neurologic deficits. Moving all the extremities. PSYCHIATRIC: Mood and affect normal. LABORATORY DATA: Potassium is 4.6, BUN is 32, and creatinine is 7.5. Hemoglobin is 6.7. ASSESSMENT AND PLAN: 1. End-stage renal disease. plan is to continue on dialysis Saturday, Saturday, and Saturday. 2. Anemia. Hemoglobin is slowly dropping. We will transfuse 1 unit of PRBC with dialysis tomorrow. 3. Edema, controlled. 4. Hyperkalemia, better. 5. Hyponatremia. We will continue on dialysis as tolerated. Plan to transfuse tomorrow with dialysis. Job ID: [id number]
[2019-04-02] MEDS: Cinacalcet HCl 30 MG TAB PO SCH (13:33)
--- NOTE | 2019-04-02 13:44 | PQF ---
ALAN FISCHER, VENKAT BUSTILLO MD [id number] CLINICAL DOCUMENTATION IMPROVEMENT CLARIFICATION FORM: ICD-10 Updated PLEASE DO AN ADDENDUM TO THE PROGRESS NOTE WITH ANY DOCUMENTATION UPDATES OR ADDITIONS AND CARRY THROUGH TO DC SUMMARY. THANK YOU. DATE: 04/02/2019 ATTN: DR. Wilmer RIGGS Please exercise your independent, professional judgment in responding to the clarification form. Clinical indicators are provided on the bottom of this form for your review. Please check appropriate box(es): [ x ] Sepsis due to: Methicillin susceptible Staphylococcus aureus Due to: [ ] Dialysis catheter [ ] Sepsis Not due to : Methicillin susceptible Staphylococcus aureus Due to: [ ] Dialysis catheter [ x ] Other diagnosis __pna [ ] Unable to determine In addition, please specify: Present on Admission (POA): [ x ] Yes [ ] No [ ] Unable to determine For continuity of documentation, please document condition throughout progress notes and discharge summary. Thank You. CLINICAL INDICATORS - SIGNS / SYMPTOMS / LABS / RESULTS AND LOCATION IN MR WBC BANDS 03/29 26.8 03/29 1 L 03/31 24.3 04/02 2L 04/02 14.2 03/29 H&P ([facility]) ASSESSMENT: 2). BACTEREMIA: THE PATIENT HAS MSSA BACTEREMIA. ONE OF THE CONSIDERATIONS IS WHETHER HIS DIALYSIS ACCESS SITE MAY BE INFECTED. 03/30 PN (ONEIL A/P 4). MSSA BACTEREMIA; 5). SEVERE SEPSIS WITH ACUTE ORGAN DYSFUNCTION WITHOUT SEPTIC SHOCK, SEPSIS DUE TO METHICILLIN SUSCEPTIBLE STAPHYLOCOCCUS AUREUS. PLAN: THE AV GRAFT GOT CLOGGED, HIS AV FISTULA IS NOT WORKING IN LEFT UE. WILL CONSULT DR. VITALE IF HIS GRAFTS NEED TO BE REMOVED DUE TO MSSA BACTEREMIA IF THERE IS NO SOURCE FOR IT. 03/31 CONSULT (IAM) I HAVE NOTHING TO OFFER FROM A SURGICAL INTERVENTION TO HIS GRAFTS. HIS DIALYSIS ACCESS IS VERY COMPLICATED. SHOULD HIS RIGHT ARM GRAFT THROMBOSE, HE SHOULD BE REFERRED BACK TO WHOEVER HAS BEEN DOING HIS DIALYSIS ACCESS. HE IS AT RISK FOR FAILED ACCESS IN HIS RIGHT UPPER EXTREMITY AND IS AT RISK FOR HAVING HAD A THIGH DIALYSIS GRAFT. RISK: HX MSSA BACTEREMIA, PT IS AN INMATE AND TRANSFERRED FROM [facility] ( H&P / BUSTILLO) 03/29 DX PNEUMONIA ( HUANGADEJORGE A/PN) 04/02 TREATMENTS: ID CONSULT (MAYI/03/30) GENERAL SX CONSULT (IAM/03/31) VANCOMYCIN IV (03/31-PRESENT) THANK YOU! KAYLYNN (This form is maintained as a part of the permanent medical record) 2014 [employer]. All Rights Reserved [email or web address] [phone] MTDD
[2019-04-02] MEDS ORDERED: Iopamidol-370 76% 500 ML 1 ML ONE (13:46)
--- NOTE | 2019-04-02 17:07 | PRG ---
DATE OF SERVICE: 04/02/2019 SUBJECTIVE: Sitting up in bed. He is totally awake, alert, oriented. No headaches. No back pain. No dyspnea. No abdominal pain. The patient has marked tenderness in the right arm where the dialysis graft is located. No joint symptoms elsewhere, particularly in the lower extremities, all the joints seem to be okay. Still having fevers intermittently up to 101 recently. OBJECTIVE: VITAL SIGNS: Blood pressure 113/47, pulse 84, respirations 20. GENERAL: Appears in no distress. Very alert and oriented. Able to communicate very well, which is a marked improvement compared with the initial state. He has marked tenderness in the right arm, particularly in the medial aspect distal level. LUNGS: Clear. HEART: Normal. ABDOMEN: Soft. BACK: No back tenderness. EXTREMITIES: No joint inflammatory activity outside the right arm. NEUROLOGIC: Nonfocal. LABORATORY DATA: Sodium 133, creatinine 7.53. White cell count is down to 14.2, hemoglobin 6.7, platelets 188. MARIBELL did not show any evidence of vegetations. ASSESSMENT AND DISCUSSION: End-stage renal disease of uncertain etiology associated with hypertension. Dysfunctional right AV graft, which required vascular intervention with fibrinolytic agent and angioplasty. Staphylococcus aureus bacteremia, methicillin-susceptible Staphylococcus aureus identified in [place], but not here yet. This is associated with pneumonia and endocarditis has been ruled out or at least much less likely. It seems to me that the right arm graft is the likely source of the infection. We will go ahead and image the site with CT scan with contrast and see if there is a fluid collection there and in that case that would complicate things since he would need removal of the graft by surgical means and then establishment of a separate access. Job ID: [id number]
--- NOTE | 2019-04-02 21:31 | CT ---
CT RIGHT UPPER EXTREMITY WITH IV CONTRAST: 04/02/19 FINDINGS: A right upper extremity arterial venous dialysis graft is noted in place with enhancement seen within the graft suggesting patency. There is a stent partially imaged within the right axillary vein and e xtending into the subclavian vein. The arterial graft anastomosis is visualized and does appear paten t. There is a suggested area of moderate narrowing involving a short segment of the distal aspect of the venous outflow of the graft. There is also mild intimal thickening and narrowing involving the gr aft venous anastomosis. There is an area of heterogeneity surrounding a portion of the more superficial portion of the graft anteriorly and more laterally. This area demonstrated increased density on the prior noncontrasted CT thorax on 03/31/19, but the surrounding area does now appear larger in size. This may represent surrou nding hemorrhage. The area surrounding the graft circumferentially measures 4.9 cm x 4.2 cm. Punctate focus of gas is seen in areas of this area of heterogeneity. Associated infection is a possibility. There is evidence of additional occluded dialysis grafts within the proximal right upper extremity li andreas related to prior failed grafts. Subcutaneous edema is seen involving the proximal right upper extremity. Degenerative changes are seen involving the right shoulder and right acromioclavicular joint. There i s overall mild increased density of the osseous structures which is likely related to patient's renal disease. IMPRESSION: 1. Right upper extremity arterial venous dialysis graft with focal areas of intimal thickening a nd areas of moderate to severe narrowing especially within the distal aspect of the outflow of the gr aft. 2. Large heterogeneous collection surrounding a portion of the graft more anteriorly and superfi cially. Increased density is seen in this region as well and also present on prior noncontrasted CT t horax. Findings may be related to surrounding hemorrhage. However, there are foci of gas also in thi s region of heterogeneity, and superimposed infection/infected hematoma is a possibility. Clinical co rrelation suggested. 3. Subcutaneous edema right upper extremity. 4. Evidence of prior failed access dialysis fistulas. There is a low density area surrounding on e of the failed grafts within the distal aspect of the right arm near the level of the antecubital fo ssa which is seen medially. This could be related to a prior hematoma. This measures 2.5 cm. POS: [facility]
[2019-04-03] MEDS: Cinacalcet HCl 30 MG TAB PO SCH (12:20)
[2019-04-03] MEDS: Sevelamer Carbonate 800 MG TAB PO SCH ×3 (12:20→21:44)
[2019-04-03] MEDS: Midodrine HCl 5 MG TAB PO SCH (12:21)
[2019-04-03] MEDS: Heparin 5,000 UNITS/ML VIAL SC SCH ×2 (12:22→21:46)
--- NOTE | 2019-04-03 14:13 | PDOC.HOSPP ---
- Subjective Encounter Date: 04/03/19 Encounter Time: 11:00 Subjective: awake, no sob feels better - Objective Vital Signs & Weight: Vital Signs (12 hours) Temp Pulse Resp BP Pulse Ox 04/03/19 13:16 99.4 F 92 L 04/03/19 10:51 98.5 F 88 18 112/69 99 04/03/19 08:00 99 04/03/19 07:27 99.5 F 76 18 97/50 L 99 04/03/19 07:13 95 04/03/19 04:20 98.5 F 83 20 105/64 95 Weight Admit Weight 199 lb 15.348 oz Weight 181 lb 7.047 oz Most Recent Monitor Data Heart Rate from ECG 79 NIBP 112/65 Respiration from ECG 16 I&O: 04/02/19 04/03/19 04/04/19 06:59 06:59 06:59 Intake Total 800 620 0 Balance 800 620 0 Result Diagrams: 04/02/19 04:24 04/02/19 04:24 Hospitalist ROS - Medication Medications: Active Medications Generic Name Dose Route Start Last Admin Trade Name Freq PRN Reason Stop Dose Admin Acetaminophen 650 mg 03/30/19 09:54 04/01/19 19:55 Tylenol PO 650 mg Q4H PRN Administration Headache/Fever/Mild Pain (1-3) Cinacalcet 60 mg 03/30/19 09:00 04/03/19 12:20 Sensipar PO 60 mg DAILY ASHLEY Administration Heparin Sodium (Porcine) 5,000 units 03/30/19 09:00 04/03/19 12:22 Heparin SC Not Given Q12HR [facility] Vancomycin HCl 500 mg/ Sodium 100 mls @ 100 mls/hr 03/31/19 07:45 04/01/19 09 :54 Chloride IVPB 100 mls WILLCALL ASHLEY Administration Levofloxacin 500 mg 04/01/19 18:00 04/01/19 18:11 Levaquin PO 500 mg Q2D ASHLEY Administration Midodrine 10 mg 03/30/19 09:00 04/03/19 12:21 Proamatine PO 10 mg [id number] ASHLEY Administration Pantoprazole Sodium 40 mg 03/30/19 09:00 04/03/19 12:21 Protonix PO 40 mg DAILY ASHLEY Administration Senna/Docusate Sodium 2 tab 03/30/19 09:54 04/01/19 01:37 Senokot S PO 2 tab BIDPRN PRN Administration Constipation Sevelamer Carbonate 4,000 mg 03/30/19 09:00 04/03/19 12:20 Renvela PO Not Given TID ASHLEY - Exam General Appearance: awake alert Eye: PERRL, anicteric sclera ENT: no oropharyngeal lesions, moist mucosa Neck: supple, no JVD Heart: RRR, no murmur Respiratory: no wheezes, no rales Gastrointestinal: soft, non-tender, non-distended, normal bowel sounds Extremities - other findings: b/l arm edema Neurological: cranial nerve grossly intact, no focal deficits Hosp A/P (1) Uremia Code(s): N19 - UNSPECIFIED KIDNEY FAILURE Status: Resolved (2) ESRD (end stage renal disease) on dialysis Code(s): N18.6 - END STAGE RENAL DISEASE; Z99.2 - DEPENDENCE ON RENAL DIALYSIS Status: Chronic (3) Acute metabolic encephalopathy Code(s): G93.41 - METABOLIC ENCEPHALOPATHY Status: Acute (4) MSSA bacteremia Code(s): R78.81 - BACTEREMIA Status: Acute (5) Sepsis Code(s): A41.9 - SEPSIS, UNSPECIFIED ORGANISM Status: Acute Qualifiers: Sepsis type: methicillin susceptible Staphylococcus aureus Sepsis acute organ dysfunction status: with acute organ dysfunction Severe sepsis acute organ dysfunction type: encephalopathy Severe sepsis shock status: without septic shock Qualified Code(s): A41.01 - Sepsis due to Methicillin susceptible Staphylococcus aureus; R65.20 - Severe sepsis without septic shock; G93.41 - Metabolic encephalopathy (6) HTN (hypertension) Code(s): I10 - ESSENTIAL (PRIMARY) HYPERTENSION Status: Chronic Qualifiers: Hypertension type: essential hypertension Qualified Code(s): I10 - Essential (primary) hypertension (7) Chronic anemia Code(s): D64.9 - ANEMIA, UNSPECIFIED Status: Chronic (8) Hyperkalemia Code(s): E87.5 - HYPERKALEMIA Status: Resolved (9) Metabolic acidosis Code(s): E87.2 - ACIDOSIS Status: Resolved (10) PNA (pneumonia) Code(s): J18.9 - PNEUMONIA, UNSPECIFIED ORGANISM Status: Acute Qualifiers: Pneumonia type: due to methicillin-sensitive Staphylococcus aureus (MSSA) Laterality: right Lung location: lower lobe of lung Qualified Code(s): J15.211 - Pneumonia due to Methicillin susceptible Staphylococcus aureus (11) Physical deconditioning Code(s): R53.81 - OTHER MALAISE Status: Acute - Plan Has had back to back HD x 3 days after arrival, had only 1 hr HD today, is getting 1 u prbc now. vanc with HD, oral levaquin His AV Fistula is not working in left UE both AV grafts in right UE were opened up by IR which had thrombus Appreciate help from and Encephalopathy is clearing up but still lethargic, ?SCOOTER continue current meds wound care for right UE wounds, PT/OT to mobilize, may need infirmary for dc plan MARIBELL showed no evidence of endocarditis. CT chest shows pna. patient has been on HD for atleast 20yrs or so per . He says he may not be allergic to pcn and has taken it for prior h/o venereal disease when he was younger? PT has to mobilize pt as tolerated in hallway/oob to chair, if he didn't ambulate then he will need infirmary.
[2019-04-03] MEDS: EPOETIN ALFA-EPBX (ESRD) 10,000 UNIT/ML VIAL IVP SCH (16:07)
[2019-04-03] MEDS: Vancomycin HCl 750 MG in Sodium Chloride 0.9% 250 ML 250 ML IVPB SCH (16:07)
[2019-04-03] MEDS: Acetaminophen 325 MG TAB PO PRN (16:11)
--- NOTE | 2019-04-03 16:40 | ECHO ---
DATE OF PROCEDURE: 04/02/19 INDICATION FOR PROCEDURE: This is a 53-year-old gentleman with sepsis. He underwent a transthoracic echocardiogram for evaluati on of possible endocarditis. None was seen but this was perhaps a technically difficult study. Then h sukhjinder was advised to undergo a transesophageal echocardiogram. He was taken to the recovery area where he underwent short acting propofol. The transesophageal probe was easily passed down the distal esophagus. IMPRESSION: 1. Normal left ventricular systolic function. 2. No evidence of vegetation on any of the valves including the aortic, tricuspid or mitral valv e. No evidence of left atrial appendage thrombus. No evidence of left atrial thrombus. 3. Mild mitral valve regurgitation. 4. Mild tricuspid valve regurgitation. 5. Trivial aortic valve regurgitation. He tolerated the procedure well. There were no significant difficulties or complications encountered.
--- NOTE | 2019-04-03 19:53 | PRG ---
DATE OF SERVICE: 04/03/2019 SUBJECTIVE: Patient was seen and examined at bedside and overnight events noted. Patient denies any shortness of breath or chest pain or palpitation. No history of nausea or vomiting or diarrhea or fever or chills or cramps. OBJECTIVE: GENERAL: This is a well-built male, in no apparent distress. VITAL SIGNS: Temperature 98.5, pulse 80, respiratory rate 18, blood pressure 112/69. HEENT: Atraumatic, normocephalic. Oral mucosa is moist NECK: Supple. CARDIOVASCULAR: S1, S2 heard. Rate and rhythm regular. RESPIRATORY: Clear to auscultation. GASTROINTESTINAL: Abdomen is soft. MUSCULOSKELETAL: No tenderness. No edema. DERMATOLOGIC: No skin rash. NEUROLOGIC: Alert and awake and oriented X3. No focal neurologic deficits. Moving all the extremities. PSYCHIATRIC: Mood and affect normal. LABORATORY DATA: No labs done today. ASSESSMENT AND PLAN: 1. End-stage renal disease. Continue on hemodialysis as tolerated. The patient refused to have dialysis today. We will attempt to have dialysis tomorrow. 2. Dialysis access. I did have a discussion with Dr. Rust and is running out of options for dialysis access. 3. Anemia. 4. Edema, controlled. 5. Hyperkalemia. 6. Hyponatremia. Plan is to continue dialysis as tolerated. Job ID: [id number]
[2019-04-04] MEDS: Acetaminophen 325 MG TAB PO PRN (00:32)
[2019-04-04] MEDS: Senokot S 8.6-50 MG TAB PO PRN (08:27)
[2019-04-04] MEDS: Sevelamer Carbonate 800 MG TAB PO SCH ×3 (08:27→17:13)
[2019-04-04] MEDS: Cinacalcet HCl 30 MG TAB PO SCH (08:28)
[2019-04-04] MEDS: Heparin 5,000 UNITS/ML VIAL SC SCH ×2 (08:28→20:20)
[2019-04-04 09:07] LABS: Anion Gap 28 mmol/L (10-20); BUN (Urea Nitrogen) 67 mg/dL (8.4-25.7); Calc. Creatinine Clearance 9 mL/min (70-130); Calcium 7.7 mg/dL (7.8-10.44); Carbon Dioxide 16 mmol/L (22-29); Chloride 100 mmol/L (98-107); Estimated GFR-MDRD 4; Glucose 102 mg/dL (70-105); Potassium 6.3 mmol/L (3.5-5.1); Sodium 138 mmol/L (136-145)
[2019-04-04 10:39] LABS: #Basophils 0.1 thou/uL (0.0-0.2); #Eosinphils 0.2 thou/uL (0.0-0.7); #Lymphocytes 1.5 thou/uL (1.20-3.40); #Monocytes 0.9 thou/uL (0.11-0.59); #Neutrophils 12.6 thou/uL (1.40-6.50); %Basophils 0.5 % (0.0-1.0); %Eosinophils 1.3 % (0.0-10.0); %Lymphocytes 9.8 % (21.0-51.0); %Monocytes 5.7 % (0.0-10.0); %Neutrophils 82.6 % (42.0-75.0); Mean Corpuscular Hemoglobin 32.2 pg (27.0-31.0); Mean Corpuscular Volume 97.5 fL (78.0-98.0); Mean Platelet Volume 6.7 fL (7.4-10.4); Platelet Count 481 thou/uL (130-400); RBC Distribution Width 16.3 % (11.5-14.5); Red Blood Cell (RBC) Count 2.19 mill/uL (4.70-6.10); White Blood Cell (WBC) Count 15.3 thou/uL (4.8-10.8)
--- NOTE | 2019-04-04 14:00 | PRG ---
DATE OF SERVICE: 04/04/2019 SUBJECTIVE: Patient was seen and examined at bedside and overnight events noted. Patient denies any shortness of breath or chest pain or palpitation. No history of nausea or vomiting or diarrhea or fever or chills or cramps. OBJECTIVE: GENERAL: This is a well-built male, in no apparent distress. VITAL SIGNS: Temperature 98.8, pulse 72, respiratory rate 16, and blood pressure 116/70. HEENT: Atraumatic, normocephalic. Oral mucosa is moist NECK: Supple. CARDIOVASCULAR: S1, S2 heard. Rate and rhythm regular. RESPIRATORY: Clear to auscultation. GASTROINTESTINAL: Abdomen is soft. MUSCULOSKELETAL: No tenderness. No edema. DERMATOLOGIC: No skin rash. NEUROLOGIC: Alert and awake and oriented X3. No focal neurologic deficits. Moving all the extremities. PSYCHIATRIC: Mood and affect normal. LABORATORY DATA: Potassium is 6.3, BUN is 67, creatinine is 12.4. ASSESSMENT AND PLAN: 1. End-stage renal disease. Continue on hemodialysis as tolerated. 2. Edema, controlled. 3. Hyperkalemia. 4. Hyponatremia. 5. Chronic anemia. Plan to continue on dialysis as tolerated. The patient had dialysis today. Job ID: [id number]
--- NOTE | 2019-04-04 15:38 | PDOC.HOSPP ---
- Subjective Encounter Date: 04/04/19 Encounter Time: 15:37 Subjective: Mr. Mcgraw was seen today in follow-up of MSSA bacteremia. He says he feels very tired after dialysis today. No new complaints. - Objective Vital Signs & Weight: Vital Signs (12 hours) Temp Pulse Resp BP BP Pulse Ox 04/04/19 13:40 98.5 F 73 16 105/49 L 96 04/04/19 08:35 96 04/04/19 07:52 98.8 F 73 16 116/70 96 04/04/19 03:43 98.6 F 78 18 108/62 97 Weight Admit Weight 199 lb 15.348 oz Weight 194 lb Most Recent Monitor Data Heart Rate from ECG 74 NIBP 109/64 Respiration from ECG 16 I&O: 04/03/19 04/04/19 04/05/19 06:59 06:59 06:59 Intake Total 620 640 Output Total 602 Balance 620 38 Result Diagrams: 04/04/19 10:00 04/04/19 08:18 Hospitalist ROS - Medication Medications: Active Medications Generic Name Dose Route Start Last Admin Trade Name Freq PRN Reason Stop Dose Admin Acetaminophen 650 mg 03/30/19 09:54 04/04/19 00:32 Tylenol PO 650 mg Q4H PRN Administration Headache/Fever/Mild Pain (1-3) Cinacalcet 60 mg 03/30/19 09:00 04/04/19 08:28 Sensipar PO 60 mg DAILY ASHLEY Administration Epoetin Randy-epbx 10,000 unit 04/03/19 11:31 04/03/19 16:07 Retacrit IVP 10,000 unit MoWeFr ASHLEY Administration Heparin Sodium (Porcine) 5,000 units 03/30/19 09:00 04/04/19 08:28 Heparin SC 5,000 units Q12HR ASHLEY Administration Vancomycin HCl 750 mg/ Sodium 250 mls @ 250 mls/hr 03/31/19 07:45 04/03/19 16 :07 Chloride IVPB 250 mls WILLCALL ASHLEY Administration Vancomycin HCl 500 mg/ Sodium 100 mls @ 100 mls/hr 03/31/19 07:45 04/01/19 09 :54 Chloride IVPB 100 mls WILLCALL ASHLEY Administration Levofloxacin 500 mg 04/01/19 18:00 01/10/20 19:21 Levaquin PO 500 mg Q2D ASHLEY Administration Midodrine 10 mg 03/30/19 09:00 04/03/19 12:21 Proamatine PO 10 mg [email or web address] ASHLEY Administration Pantoprazole Sodium 40 mg 03/30/19 09:00 04/04/19 08:27 Protonix PO 40 mg DAILY ASHLEY Administration Senna/Docusate Sodium 2 tab 03/30/19 09:54 04/04/19 08:27 Senokot S PO 2 tab BIDPRN PRN Administration Constipation Sevelamer Carbonate 4,000 mg 04/04/19 08:00 04/04/19 11:45 Renvela PO Not Given TID-WM ASHLEY - Exam Eye: PERRL Heart: RRR, no gallops, no rubs, normal peripheral pulses, murmur present, II/IV Respiratory: CTAB, no wheezes, no rales, no ronchi, normal chest expansion, no tachypnea, normal percussion Gastrointestinal: soft, non-tender, non-distended, normal bowel sounds, no palpable masses, no hepatomegaly Extremities: no cyanosis, no edema Hosp A/P (1) MSSA bacteremia Code(s): R78.81 - BACTEREMIA Status: Acute (2) Physical deconditioning Code(s): R53.81 - OTHER MALAISE Status: Acute (3) ESRD (end stage renal disease) on dialysis Code(s): N18.6 - END STAGE RENAL DISEASE; Z99.2 - DEPENDENCE ON RENAL DIALYSIS Status: Chronic (4) HTN (hypertension) Code(s): I10 - ESSENTIAL (PRIMARY) HYPERTENSION Status: Chronic Qualifiers: Hypertension type: essential hypertension Qualified Code(s): I10 - Essential (primary) hypertension - Plan * MSSA Bacteremia- without evidence of endocarditis- * Continue Levaquin and Vancomycin * HTN- blood pressure is stable * ESRD- he not has vascular access-
--- NOTE | 2019-04-04 16:08 | PRG ---
DATE OF SERVICE: 04/04/2019 SUBJECTIVE: The patient is having neck pain more than yesterday. The right arm is not bothering him. Does not have low back pain. No abdominal pain. No cough, sputum production, or dyspnea. No other joint symptoms. OBJECTIVE: VITAL SIGNS: T-max 99.9 yesterday, blood pressure 105/49, pulse 73, respirations 16, O2 saturation 96. GENERAL: Awake and alert. Does not appear in distress. HEENT: Pupils are equal. He is oriented. Has difficulty moving neck because of pain. LUNGS: Symmetric clear breath sounds. HEART: S1 and S2, regular rate. EXTREMITIES: Right arm is less tender than before. ABDOMEN: Not tender. Not distended. LABORATORY DATA: White cell count is 15.3, hemoglobin 7, platelets 481. Sodium 138, creatinine 12. On March 29, blood culture, no growth in 5 days. ASSESSMENT AND DISCUSSION: End-stage renal disease of uncertain etiology associated with hypertension, dysfunctional right AV graft, which required vascular intervention with resumption of function and methicillin-susceptible Staphylococcus aureus bacteremia identified in [place]. The only positive finding thus far is the right arm with possible infected hematoma in the right arm associated with the graft. Now, he is having pain in the C-spine area and may need an MRI of the C-spine to rule out involvement of that level. I would continue levofloxacin orally, adjusted for renal function or Cipro likewise plus vancomycin sliding scale for total of 6 weeks. He may require removal of the graft down the road, but due to the lack of a lot of options for access, I would try to address this with conservative therapy initially. If the C-spine MRI is positive, then we will have to address that as well. Job ID: [id number]
[2019-04-05 08:59] LABS: #Basophils 0.1 thou/uL (0.0-0.2); #Eosinphils 0.2 thou/uL (0.0-0.7); #Lymphocytes 1.4 thou/uL (1.20-3.40); #Neutrophils 10.4 thou/uL (1.40-6.50); %Basophils 0.4 % (0.0-1.0); %Eosinophils 1.3 % (0.0-10.0); %Monocytes 7.6 % (0.0-10.0); %Neutrophils 79.7 % (42.0-75.0); Hemoglobin 7.4 g/dL (14.0-18.0); Mean Corpuscular HGB CONC 33.3 g/dL (32.0-36.0); Mean Corpuscular Hemoglobin 32.3 pg (27.0-31.0); Mean Corpuscular Volume 97.1 fL (78.0-98.0); Mean Platelet Volume 6.6 fL (7.4-10.4); Platelet Count 447 thou/uL (130-400); RBC Distribution Width 16.1 % (11.5-14.5); Red Blood Cell (RBC) Count 2.29 mill/uL (4.70-6.10)
[2019-04-05] MEDS: Heparin 5,000 UNITS/ML VIAL SC SCH ×2 (09:00→20:19)
[2019-04-05] MEDS: Acetaminophen 325 MG TAB PO PRN ×2 (09:00→23:33)
[2019-04-05] MEDS: Sevelamer Carbonate 800 MG TAB PO SCH ×3 (09:02→17:55)
[2019-04-05] MEDS: Cinacalcet HCl 30 MG TAB PO SCH (09:02)
[2019-04-05 09:14] LABS: Anion Gap 19 mmol/L (10-20); BUN (Urea Nitrogen) 29 mg/dL (8.4-25.7); Calc. Creatinine Clearance 14 mL/min (70-130); Calcium 7.6 mg/dL (7.8-10.44); Carbon Dioxide 25 mmol/L (22-29); Chloride 94 mmol/L (98-107); Estimated GFR-MDRD 7; Glucose 119 mg/dL (70-105); Sodium 134 mmol/L (136-145)
--- NOTE | 2019-04-05 11:55 | MRI ---
MRI CERVICAL SPINE WITHOUT CONTRAST: HISTORY: Bacteremia. Worsening neck pain. Dialysis patient. COMPARISON: None. 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 There is T2 and STIR hyperintensity involving the inferior aspect of C7 and the superior aspect of T1 . The intervening disc space does demonstrate fluid signal intensity. Sagittal STIR images demonstrate prevertebral fluid. Fluid is noted at the anterior aspect of C1 and extends in a caudal f ashion down to at least the T2 level. The visualized brain parenchyma, cervicomedullary junction, cervical cord and the upper thoracic cord have a normal size signal intensity. Spondylolisthesis: C5-C6: 4.1 mm of anterolisthesis. Evaluation is limited on the axial sequences due to motion degradation. C2-C3: No significant central canal stenosis or significant neural foraminal narrowing. C3-C4: No evidence of high-grade central canal stenosis. Limited evaluation due to motion degradation . At least [id number] neural foraminal narrowing. C4-C5: Broad-based disc bulge with a central disc protrusion. Mild central canal stenosis. Bilaterall y, neural foramina are patent. C5-C6: Broad-based disc osteophyte complex abuts the thecal sac. Subarachnoid space is effaced. Mild deformity of the cervical cord. Mild to moderate central canal stenosis. Neural foramina are patent. C6-C7: Broad-based disc osteophyte complex abuts the thecal sac. There is a central disc protrusion w ith mass effect and deformity of the cervical cord. Mild to moderate central canal stenosis. Neural foramina are patent. C7-T1: Fluid signal intensity of the disc space. No evidence of high-grade central canal stenosis or high-grade foraminal narrowing. IMPRESSION: 1. 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 2. The possibility of discitis/osteomyelitis at the cervicomedullary junction (C7-T1). There appears to be associated edema along the anterior prevertebral soft tissues as high as the C1 vertebral body and extending inferiorly to the T2 level. Transcribed Date/Time: 04/05/2019 12:35 PM
--- NOTE | 2019-04-05 12:13 | PRG ---
DATE OF SERVICE: 04/05/2019 SUBJECTIVE: Patient was seen and examined at bedside and overnight events noted. Patient denies any shortness of breath or chest pain or palpitation. No history of nausea or vomiting or diarrhea or fever or chills or cramps. OBJECTIVE: GENERAL: This is a well-built male, in no acute distress. VITAL SIGNS: Temperature 91. Pulse 70. Respiratory rate 16. Blood pressure 112/60. HEENT: Atraumatic, normocephalic. Oral mucosa is moist NECK: Supple. CARDIOVASCULAR: S1, S2 heard. Rate and rhythm regular. RESPIRATORY: Clear to auscultation. GASTROINTESTINAL: Abdomen is soft. MUSCULOSKELETAL: No tenderness. No edema. DERMATOLOGIC: No skin rash. NEUROLOGIC: Alert and awake and oriented X3. No focal neurologic deficits. Moving all the extremities. PSYCHIATRIC: Mood and affect normal. LABORATORY DATA: Potassium 4.0, BUN is 29, and creatinine 7.9. ASSESSMENT AND PLAN: 1. End-stage renal disease, continue dialysis on Saturday, Saturday, and Saturday. 2. Hyperkalemia, better limit potassium. 3. Edema, controlled. 4. Hyponatremia. 5. Chronic kidney. PLAN: Continue dialysis on Saturday, Saturday, Saturday as tolerated. Job ID: [id number]
--- NOTE | 2019-04-05 15:23 | PDOC.HOSPP ---
- Subjective Encounter Date: 04/05/19 Encounter Time: 15:21 Subjective: Mr. Mcgraw was seen today in follow-up of MSSA bacteremia. He does not have any new complaints. He does endorse some neck pain. - Objective Vital Signs & Weight: Vital Signs (12 hours) Temp Pulse Resp BP Pulse Ox 04/05/19 07:58 98.1 F 78 16 112/69 98 Weight Admit Weight 199 lb 15.348 oz Weight 194 lb Most Recent Monitor Data Heart Rate from ECG 74 NIBP 109/64 Respiration from ECG 16 I&O: 04/04/19 04/05/19 04/06/19 06:59 06:59 06:59 Intake Total 640 1210 Output Total 602 0 Balance 38 1210 Result Diagrams: 04/05/19 08:50 04/05/19 08:50 Hospitalist ROS - Medication Medications: Active Medications Generic Name Dose Route Start Last Admin Trade Name Freq PRN Reason Stop Dose Admin Acetaminophen 650 mg 03/30/19 09:54 04/05/19 09:00 Tylenol PO 650 mg Q4H PRN Administration Headache/Fever/Mild Pain (1-3) Cinacalcet 60 mg 03/30/19 09:00 04/05/19 09:02 Sensipar PO 60 mg DAILY ASHLEY Administration Epoetin Randy-epbx 10,000 unit 04/03/19 11:31 04/03/19 16:07 Retacrit IVP 10,000 unit MoWeFr ASHLEY Administration Heparin Sodium (Porcine) 5,000 units 03/30/19 09:00 04/05/19 09:00 Heparin SC 5,000 units Q12HR ASHLEY Administration Vancomycin HCl 750 mg/ Sodium 250 mls @ 250 mls/hr 03/31/19 07:45 04/03/19 16 :07 Chloride IVPB 250 mls WILLCALL ASHLEY Administration Vancomycin HCl 500 mg/ Sodium 100 mls @ 100 mls/hr 03/31/19 07:45 04/01/19 09 :54 Chloride IVPB 100 mls WILLCALL ASHLEY Administration Levofloxacin 500 mg 04/01/19 18:00 04/03/19 19:21 Levaquin PO 500 mg Q2D ASHLEY Administration Midodrine 10 mg 03/30/19 09:00 04/03/19 12:21 Proamatine PO 10 mg [email or web address] ASHLEY Administration Pantoprazole Sodium 40 mg 03/30/19 09:00 04/05/19 09:01 Protonix PO 40 mg DAILY ASHLEY Administration Senna/Docusate Sodium 2 tab 03/30/19 09:54 04/04/19 08:27 Senokot S PO 2 tab BIDPRN PRN Administration Constipation Sevelamer Carbonate 4,000 mg 04/04/19 08:00 04/05/19 12:27 Renvela PO 4,000 mg TID-WM ASHLEY Administration - Exam Eye: PERRL Heart: RRR, no gallops, no rubs, normal peripheral pulses, murmur present ( systolic), II/IV Respiratory: CTAB, no wheezes, no rales, no ronchi, normal chest expansion, no tachypnea, normal percussion Gastrointestinal: soft, non-tender, non-distended, normal bowel sounds, no palpable masses, no hepatomegaly, no splenomegaly Extremities: no cyanosis, no clubbing, no edema Neurological: no focal deficits Hosp A/P (1) MSSA bacteremia Code(s): R78.81 - BACTEREMIA Status: Acute (2) Physical deconditioning Code(s): R53.81 - OTHER MALAISE Status: Acute (3) ESRD (end stage renal disease) on dialysis Code(s): N18.6 - END STAGE RENAL DISEASE; Z99.2 - DEPENDENCE ON RENAL DIALYSIS Status: Chronic (4) HTN (hypertension) Code(s): I10 - ESSENTIAL (PRIMARY) HYPERTENSION Status: Chronic Qualifiers: Hypertension type: essential hypertension Qualified Code(s): I10 - Essential (primary) hypertension - Plan * MSSA Bacteremia- discussed with Dr. Washington. MRI results were noted. He has a lesion which is suspicious for Diskiitis- will consult Neurosurgery * Place on bed rest for now * Continue Levaquin and Vancomycin * HTN- blood pressure is stable * ESRD- continue dialysis through the de-clotted AV fistula. This site may be infected, but will utilize unless the infection does not clear. * Begin arrangements for outpatient antibiotics
--- NOTE | 2019-04-06 00:31 | CON ---
DATE OF CONSULTATION: 04/05/2019 HISTORY OF PRESENT ILLNESS: The patient is a 53-year-old male, incarcerated at [facility], with a past medical history of end-stage renal disease and hypertension, who was admitted on 03/29/2019 for sepsis with fever and gastroenteritis as well as hyperkalemia and hyponatremia. He was found to have bibasilar infiltrates as well as a suspected dialysis catheter infection. He had blood cultures which were positive for MSSA bacteremia, and he is currently being treated on vancomycin and Levaquin. He is being followed by the Medicine, Infectious Disease, Nephrology, General Surgery Service. During his admission course, he also developed increasing neck pain. He was evaluated with a MRI of the cervical spine, which was notable for hyperdensity along the prevertebral area consistent with edema from C1 to C2 as well as some hyperdensities at C7 to T1 concerning for diskitis and osteomyelitis. I visited the patient at the bedside. He is A and O x4, in no acute distress. He does complain of some mild neck pain. He is generally nonfocal on his exam. He has been afebrile overnight, and his white count today is currently 13.0. PAST MEDICAL HISTORY: Hypertension, end-stage renal disease. PAST SURGICAL HISTORY: Multiple dialysis catheters, bilateral knee surgery, bilateral hip surgeries. SOCIAL HISTORY: The patient does not smoke, drink, or use any drugs. He is currently incarcerated at [facility]. ALLERGIES: ALLERGIC TO AMOXICILLIN, CEPHALOSPORINS, AND OPIOIDS. REVIEW OF SYSTEMS: Per HPI. PHYSICAL EXAMINATION: VITAL SIGNS: Temperature is 98.1, heart rate is 78, respirations 16, patient is 98% on room air, BP is 112/69. CONSTITUTIONAL: Awake, alert, in no acute distress. HEENT: Head, normocephalic and atraumatic. Eyes, PERRLA. Extraocular movements intact. ENT, oral mucosa is pink, intact, and moist. He has normal voice. NECK: He is mildly tender over the posterior cervical spine and paraspinal musculature. No pain with range of motion. No meningismus. No nuchal rigidity. CARDIOVASCULAR: Regular rate and rhythm respiratory symmetric chest expansion. MUSCULOSKELETAL: Free active range of motion all extremities. No focal motor weakness. NEUROLOGIC: A and O x4. No focal neurologic deficits are appreciated. ASSESSMENT AND PLAN: This is a 53-year-old male recently admitted for sepsis with MSSA bacteremia, who has a recent cervical MRI with prevertebral edema from C1 to T2 as well as hyperdensity at C7 to T1 concerning for osteomyelitis and diskitis. There is no obvious fluid collection or drainable abscess. There is no significant compression. The patient is neurologically intact. At this point, there are no plans for acute neurosurgical intervention. We will defer any long-term antibiotic plan to the Infectious Disease service. I have discussed this plan with Dr. Adames, who is in agreement. Job ID: [id number]
[2019-04-06 09:35] LABS: Vancomycin, Random 10.5 ug/mL (See Comment)
[2019-04-06] MEDS: EPOETIN ALFA-EPBX (ESRD) 10,000 UNIT/ML VIAL IVP SCH (11:05)
[2019-04-06] MEDS: Vancomycin HCl 750 MG in Sodium Chloride 0.9% 250 ML 250 ML IVPB SCH (11:06)
--- NOTE | 2019-04-06 11:07 | PRG ---
DATE OF SERVICE: 04/06/2019 SUBJECTIVE: A 53-year-old gentleman, being seen for end-stage kidney disease. The patient denied nausea, vomiting, or chest pain. OBJECTIVE: See above. The patient is awake, alert, in no acute distress. VITAL SIGNS: Pulse 75, breathing 16, and blood pressure 122/77. GENERAL APPEARANCE AND MENTAL STATUS: Fair. HEAD/NECK: Normocephalic. Atraumatic. EYES: EOMI. No deformity. EARS: Clear. No ulcers. NOSE: Intact. No lesions. MOUTH: Clear. No discharge. THROAT: Clear. No exudate. LUNGS: Clear. No crackles. CARDIAC: S1, S2. No rub. ABDOMEN: Benign. Bowel sounds positive. GENITALIA/RECTUM: Gallardo absent. BACK/EXTREMITIES: Edema 0+. NEUROLOGICAL: Alert and motor intact. SKIN: LYMPHATICS: LABORATORY DATA: Reviewed. ASSESSMENT AND PLAN: 1. Stage 6 chronic kidney injury, continue hemodialysis. 2. Hypertension, stable. 3. Anemia, stable. Medication based on GFR appropriate. Job ID: [id number]
[2019-04-06] MEDS ORDERED: traMADol HCl 50 MG TAB PO PRN (13:57)
--- NOTE | 2019-04-06 13:57 | PRG ---
DATE OF SERVICE: 04/06/2019 SUBJECTIVE: Sitting up in bed, eating lunch. Awake, alert, oriented. In his own words, he feels like as if he was back to normal, although he has a symptoms in his feet, which is probably due to neuropathy. He is still with some neck pain, but not as much as before. The right arm is not bothering him as much either. No respiratory symptoms. No abdominal pain or diarrhea. OBJECTIVE: VITAL SIGNS: T-max 100.2 two days ago, afebrile since. Other vital signs are normal. GENERAL: Awake, alert, and oriented. NECK: Mild neck tenderness. LUNGS: Clear to auscultation percussion. Maybe faint expiratory wheezing, left side. HEART: S1 and S2, regular rate. EXTREMITIES: Right arm is less swollen and less tender than before, not as indurated. No evidence of joint inflammatory changes in the feet area. No edema. NEUROLOGIC: Nonfocal. LABORATORY DATA: White cell count 13,000, hemoglobin 7.4, platelets 447, and 79% neutrophils. Sodium 134, creatinine 7.82. Two sets of blood cultures from the 5th, no growth in 5 days. ASSESSMENT AND DISCUSSION: End-stage renal disease of uncertain etiology; hypertension; dysfunctional right AV graft, which required Vascular intervention and resumption of function; MSSA bacteremia with evidence of C7-T1 diskitis as well as right arm infection. Due to his severe hypersensitive reaction to beta lactams, we will continue vancomycin sliding scale and ciprofloxacin adjusted for renal function, total of 6 weeks, the end date will be the around May 16. Job ID: [id number]
--- NOTE | 2019-04-06 13:59 | PDOC.HOSPP ---
- Subjective Encounter Date: 04/06/19 Encounter Time: 13:57 Subjective: Mr. Mcgraw was seen today in follow-up of MSSA bacteremia. He says he is beginning to feel like his old self. He notes he can move his limbs better. - Objective Vital Signs & Weight: Vital Signs (12 hours) Temp Pulse Resp BP BP Pulse Ox 04/06/19 07:41 98.8 F 80 18 122/77 91 L 04/06/19 04:00 98.2 F 74 18 102/64 96 Weight Admit Weight 199 lb 15.348 oz Weight 194 lb Most Recent Monitor Data Heart Rate from ECG 74 NIBP 109/64 Respiration from ECG 16 I&O: 04/05/19 04/06/19 04/07/19 06:59 06:59 06:59 Intake Total 1210 1440 Output Total 0 0 Balance 1210 1440 Result Diagrams: 04/05/19 08:50 04/05/19 08:50 Hospitalist ROS - Medication Medications: Active Medications Generic Name Dose Route Start Last Admin Trade Name Freq PRN Reason Stop Dose Admin Acetaminophen 650 mg 03/30/19 09:54 04/05/19 23:33 Tylenol PO 650 mg Q4H PRN Administration Headache/Fever/Mild Pain (1-3) Cinacalcet 60 mg 03/30/19 09:00 04/05/19 09:02 Sensipar PO 60 mg DAILY ASHLEY Administration Epoetin Randy-epbx 10,000 unit 04/03/19 11:31 04/06/19 11:05 Retacrit IVP 10,000 unit MoWeFr ASHLEY Administration Heparin Sodium (Porcine) 5,000 units 03/30/19 09:00 04/05/19 20:19 Heparin SC 5,000 units Q12HR ASHLEY Administration Vancomycin HCl 750 mg/ Sodium 250 mls @ 250 mls/hr 03/31/19 07:45 04/06/19 11 :06 Chloride IVPB 250 mls WILLCALL ASHLEY Administration Vancomycin HCl 500 mg/ Sodium 100 mls @ 100 mls/hr 03/31/19 07:45 04/01/19 09 :54 Chloride IVPB 100 mls WILLCALL ASHLEY Administration Levofloxacin 500 mg 04/01/19 18:00 04/05/19 17:58 Levaquin PO 500 mg Q2D ASHLEY Administration Midodrine 10 mg 03/30/19 09:00 04/03/19 12:21 Proamatine PO 10 mg [email or web address] ASHLEY Administration Ondansetron HCl 4 mg 03/30/19 09:54 04/05/19 23:33 Zofran IVP 4 mg Q6H PRN Administration Nausea/Vomiting Pantoprazole Sodium 40 mg 03/30/19 09:00 04/05/19 09:01 Protonix PO 40 mg DAILY ASHLEY Administration Senna/Docusate Sodium 2 tab 03/30/19 09:54 04/04/19 08:27 Senokot S PO 2 tab BIDPRN PRN Administration Constipation Sevelamer Carbonate 4,000 mg 04/04/19 08:00 04/05/19 17:55 Renvela PO 4,000 mg TID-WM ASHLEY Administration - Exam Eye: PERRL Heart: RRR, no gallops, no rubs, normal peripheral pulses, murmur present, II/IV Respiratory: CTAB, no wheezes, no rales, no ronchi, normal chest expansion, no tachypnea, normal percussion Gastrointestinal: soft, non-tender, non-distended, normal bowel sounds, no palpable masses, no hepatomegaly Extremities: no cyanosis Hosp A/P (1) MSSA bacteremia Code(s): R78.81 - BACTEREMIA Status: Acute (2) Physical deconditioning Code(s): R53.81 - OTHER MALAISE Status: Acute (3) ESRD (end stage renal disease) on dialysis Code(s): N18.6 - END STAGE RENAL DISEASE; Z99.2 - DEPENDENCE ON RENAL DIALYSIS Status: Chronic (4) HTN (hypertension) Code(s): I10 - ESSENTIAL (PRIMARY) HYPERTENSION Status: Chronic Qualifiers: Hypertension type: essential hypertension Qualified Code(s): I10 - Essential (primary) hypertension - Plan * MSSA Bacteremia- Neurosurgery recommendations noted * Can lift bed rest * Continue Levaquin and Vancomycin * HTN- blood pressure is stable * Peripheral Neuropathy due to DM- will add Gabapentin * ESRD- Continue dialysis as tolerated * He is stable for transfer to the [facility]
[2019-04-06 14:03] VITALS: BMI 30.4
[2019-04-06] MEDS: Sevelamer Carbonate 800 MG TAB PO SCH ×3 (14:23→18:04)
[2019-04-06] MEDS: Midodrine HCl 5 MG TAB PO SCH (14:24)
[2019-04-06] MEDS: Cinacalcet HCl 30 MG TAB PO SCH (14:30)
[2019-04-06] MEDS: Heparin 5,000 UNITS/ML VIAL SC SCH ×2 (14:31→20:41)
[2019-04-06] MEDS: Gabapentin 300 MG CAP PO SCH (20:41)
[2019-04-07] MEDS: Acetaminophen 325 MG TAB PO PRN ×2 (00:44→21:54)
[2019-04-07] MEDS: Sevelamer Carbonate 800 MG TAB PO SCH ×4 (09:30→17:30)
[2019-04-07] MEDS: Gabapentin 300 MG CAP PO SCH ×2 (09:31→21:53)
[2019-04-07] MEDS: Cinacalcet HCl 30 MG TAB PO SCH (09:31)
[2019-04-07] MEDS: Heparin 5,000 UNITS/ML VIAL SC SCH ×2 (09:31→21:54)
--- NOTE | 2019-04-07 09:43 | PRG ---
DATE OF SERVICE: 04/07/2019 SUBJECTIVE: A 53-year-old gentleman, being seen for end-stage renal disease. The patient denies nausea, vomiting, or chest pain. OBJECTIVE: CONSTITUTIONAL: The patient is awake, alert. VITAL SIGNS: Pulse 73, breathing 16, blood pressure 131/81. GENERAL APPEARANCE AND MENTAL STATUS: Fair. HEAD/NECK: Normocephalic. Atraumatic. EYES: EOMI. No deformity. EARS: Clear. No ulcers. NOSE: Intact. No lesions. MOUTH: Clear. No discharge. THROAT: Clear. No exudate. LUNGS: Clear. No crackles. CARDIAC: S1, S2. No rub. ABDOMEN: Benign. Bowel sounds positive. GENITALIA/RECTUM: Gallardo absent. BACK/EXTREMITIES: Edema 0+. NEUROLOGICAL: Alert and motor intact. SKIN: LYMPHATICS: LABORATORY DATA: Hemoglobin 7.4. ASSESSMENT AND PLAN: 1. Stage 6 chronic kidney disease. Continue hemodialysis per schedule. 2. Hypertension, stable. 3. Anemia. Recommend transfusion. 4. Medication based on GFR appropriate. Job ID: [id number]
--- NOTE | 2019-04-07 17:21 | PDOC.HOSPP ---
- Subjective Encounter Date: 04/07/19 Encounter Time: 17:19 Subjective: Mr. Mcgraw was seen today in follow-up of MSSA Bacteremia. He does not have any new complaints. - Objective Vital Signs & Weight: Vital Signs (12 hours) Temp Pulse Pulse Pulse BP BP BP 04/07/19 14:58 73 74 109/60 135/82 04/07/19 09:30 04/07/19 07:43 98.9 F 73 106/67 Pulse Ox Pulse Ox Pulse Ox 04/07/19 14:58 99 99 04/07/19 09:30 100 04/07/19 07:43 100 Weight Admit Weight 199 lb 15.348 oz Weight 194 lb Most Recent Monitor Data Heart Rate from ECG 74 NIBP 109/64 Respiration from ECG 16 I&O: 04/06/19 04/07/19 04/08/19 06:59 06:59 06:59 Intake Total 1440 1680 Output Total 0 0 Balance 1440 1680 Result Diagrams: 04/05/19 08:50 04/05/19 08:50 Hospitalist ROS - Medication Medications: Active Medications Generic Name Dose Route Start Last Admin Trade Name Freq PRN Reason Stop Dose Admin Acetaminophen 650 mg 03/30/19 09:54 04/07/19 00:44 Tylenol PO 650 mg Q4H PRN Administration Headache/Fever/Mild Pain (1-3) Cinacalcet 60 mg 03/30/19 09:00 04/07/19 09:31 Sensipar PO 60 mg DAILY ASHLEY Administration Epoetin Randy-epbx 10,000 unit 04/03/19 11:31 04/06/19 11:05 Retacrit IVP 10,000 unit MoWeFr ASHLEY Administration Gabapentin 300 mg 04/06/19 21:00 04/07/19 09:31 Neurontin PO 300 mg BID ASHLEY Administration Heparin Sodium (Porcine) 5,000 units 03/30/19 09:00 04/07/19 09:31 Heparin SC 5,000 units Q12HR ASHLEY Administration Vancomycin HCl 750 mg/ Sodium 250 mls @ 250 mls/hr 03/31/19 07:45 04/06/19 11 :06 Chloride IVPB 250 mls WILLCALL ASHLEY Administration Vancomycin HCl 500 mg/ Sodium 100 mls @ 100 mls/hr 03/31/19 07:45 04/01/19 09 :54 Chloride IVPB 100 mls WILLCALL ASHLEY Administration Levofloxacin 500 mg 04/01/19 18:00 04/06/19 17:22 Levaquin PO 500 mg Q2D ASHLEY Administration Midodrine 10 mg 03/30/19 09:00 04/06/19 14:24 Proamatine PO Not Given MoWeFr@0900 ASHLEY Ondansetron HCl 4 mg 03/30/19 09:54 04/05/19 23:33 Zofran IVP 4 mg Q6H PRN Administration Nausea/Vomiting Pantoprazole Sodium 40 mg 03/30/19 09:00 04/07/19 09:31 Protonix PO 40 mg DAILY ASHLEY Administration Senna/Docusate Sodium 2 tab 03/30/19 09:54 04/04/19 08:27 Senokot S PO 2 tab BIDPRN PRN Administration Constipation Sevelamer Carbonate 4,000 mg 04/04/19 08:00 04/07/19 11:41 Renvela PO 4,000 mg TID-WM ASHLEY Administration Tramadol HCl 50 mg 04/06/19 13:57 04/06/19 17:22 Ultram PO 50 mg Q12H PRN Administration Moderate Pain (4-6) - Exam Eye: PERRL Heart: RRR, no murmur, no gallops, no rubs, normal peripheral pulses Respiratory: CTAB, no wheezes, no rales, no ronchi, normal chest expansion Gastrointestinal: soft, non-tender, non-distended, normal bowel sounds, no palpable masses, no hepatomegaly, no splenomegaly Extremities: no cyanosis, no clubbing, no edema Hosp A/P (1) MSSA bacteremia Code(s): R78.81 - BACTEREMIA Status: Acute (2) Physical deconditioning Code(s): R53.81 - OTHER MALAISE Status: Acute (3) ESRD (end stage renal disease) on dialysis Code(s): N18.6 - END STAGE RENAL DISEASE; Z99.2 - DEPENDENCE ON RENAL DIALYSIS Status: Chronic (4) HTN (hypertension) Code(s): I10 - ESSENTIAL (PRIMARY) HYPERTENSION Status: Chronic Qualifiers: Hypertension type: essential hypertension Qualified Code(s): I10 - Essential (primary) hypertension - Plan * MSSA Bacteremia- continue IV Vancomycin and Levaquin * Awaiting outpatient [facility] transfer * HTN- blood pressure is stable * Peripheral Neuropathy due to DM- will continue to titrate Gabapentin * ESRD- Continue dialysis as tolerated
[2019-04-07] MEDS: Senokot S 8.6-50 MG TAB PO PRN (21:53)
[2019-04-08 07:34] LABS: Hemoglobin 7.3 g/dL (14.0-18.0)
--- NOTE | 2019-04-08 08:36 | PRG ---
DATE OF SERVICE: 04/08/2019 SUBJECTIVE: A 53-year-old gentleman being seen for end-stage kidney disease. The patient denied nausea, vomiting, or chest pain. OBJECTIVE: See above. The patient is awake and alert. VITAL SIGNS: Pulse 75, breathing 16, blood pressure 128/77. GENERAL APPEARANCE AND MENTAL STATUS: Fair. HEAD/NECK: Normocephalic. Atraumatic. EYES: EOMI. No deformity. EARS: Clear. No ulcers. NOSE: Intact. No lesions. MOUTH: Clear. No discharge. THROAT: Clear. No exudate. LUNGS: Clear. No crackles. CARDIAC: S1, S2. No rub. ABDOMEN: Benign. Bowel sounds positive. GENITALIA/RECTUM: Gallardo absent. BACK/EXTREMITIES: Edema 0+. NEUROLOGICAL: Alert and motor intact. SKIN: LYMPHATICS: LABORATORY DATA: Reviewed. ASSESSMENT: 1. Stage 3 chronic kidney disease. Plan dialysis. 2. Hypertension, stable. 3. Anemia, plan transfusion. Medication based on GFR appropriate. Job ID: [id number]
[2019-04-08 09:17] LABS: Vancomycin, Random 15.3 ug/mL (See Comment)
[2019-04-08] MEDS: EPOETIN ALFA-EPBX (ESRD) 10,000 UNIT/ML VIAL IVP SCH (12:50)
[2019-04-08] MEDS: Sevelamer Carbonate 800 MG TAB PO SCH ×3 (14:10→17:35)
[2019-04-08] MEDS: Midodrine HCl 5 MG TAB PO SCH (14:11)
[2019-04-08] MEDS: Gabapentin 300 MG CAP PO SCH ×3 (14:11→20:00)
[2019-04-08] MEDS: Cinacalcet HCl 30 MG TAB PO SCH (14:11)
[2019-04-08] MEDS: Heparin 5,000 UNITS/ML VIAL SC SCH ×2 (14:12→20:00)
--- NOTE | 2019-04-08 14:27 | PDOC.HOSPP ---
- Subjective Encounter Date: 04/08/19 Encounter Time: 14:25 Subjective: Ms. Mcgraw was seen today in follow-up of MSSA bacteremia. He does not have any new complaints. - Objective Vital Signs & Weight: Vital Signs (12 hours) Temp Pulse Resp BP BP Pulse Ox 04/08/19 08:00 98.5 F 79 13 134/82 96 04/08/19 07:31 128/77 Weight Admit Weight 199 lb 15.348 oz Weight 194 lb Most Recent Monitor Data Heart Rate from ECG 74 NIBP 109/64 Respiration from ECG 16 I&O: 04/07/19 04/08/19 04/09/19 06:59 06:59 06:59 Intake Total 1680 1410 Output Total 0 0 Balance 1680 1410 Result Diagrams: 04/08/19 07:23 04/05/19 08:50 Hospitalist ROS - Medication Medications: Active Medications Generic Name Dose Route Start Last Admin Trade Name Freq PRN Reason Stop Dose Admin Acetaminophen 650 mg 03/30/19 09:54 04/07/19 21:54 Tylenol PO 650 mg Q4H PRN Administration Headache/Fever/Mild Pain (1-3) Cinacalcet 60 mg 03/30/19 09:00 04/08/19 14:11 Sensipar PO 60 mg DAILY ASHLEY Administration Epoetin Randy-epbx 10,000 unit 04/03/19 11:31 04/08/19 12:50 Retacrit IVP 10,000 unit MoWeFr ASHLEY Administration Gabapentin 300 mg 04/06/19 21:00 04/08/19 14:11 Neurontin PO 300 mg BID ASHLEY Administration Heparin Sodium (Porcine) 5,000 units 03/30/19 09:00 04/08/19 14:12 Heparin SC 5,000 units Q12HR ASHLEY Administration Vancomycin HCl 750 mg/ Sodium 250 mls @ 250 mls/hr 03/31/19 07:45 04/06/19 11 :06 Chloride IVPB 250 mls WILLCALL ASHLEY Administration Vancomycin HCl 500 mg/ Sodium 100 mls @ 100 mls/hr 03/31/19 07:45 04/01/19 09 :54 Chloride IVPB 100 mls WILLCALL ASHLEY Administration Levofloxacin 500 mg 04/01/19 18:00 04/06/19 17:22 Levaquin PO 500 mg Q2D ASHLEY Administration Midodrine 10 mg 03/30/19 09:00 04/08/19 14:11 Proamatine PO 10 mg [email or web address]@0900 ASHLEY Administration Ondansetron HCl 4 mg 03/30/19 09:54 04/05/19 23:33 Zofran IVP 4 mg Q6H PRN Administration Nausea/Vomiting Pantoprazole Sodium 40 mg 03/30/19 09:00 04/08/19 14:11 Protonix PO 40 mg DAILY ASHLEY Administration Senna/Docusate Sodium 2 tab 03/30/19 09:54 04/07/19 21:53 Senokot S PO 2 tab BIDPRN PRN Administration Constipation Sevelamer Carbonate 4,000 mg 04/04/19 08:00 04/08/19 14:10 Renvela PO 4,000 mg TID-WM ASHLEY Administration Tramadol HCl 50 mg 04/06/19 13:57 04/06/19 17:22 Ultram PO 50 mg Q12H PRN Administration Moderate Pain (4-6) - Exam Eye: PERRL Heart: RRR, no murmur, no gallops, no rubs, normal peripheral pulses Respiratory: CTAB, no wheezes, no rales, no ronchi, normal chest expansion Gastrointestinal: soft, non-tender, non-distended, normal bowel sounds, no palpable masses Extremities: no cyanosis, 1+ LE edema Hosp A/P (1) MSSA bacteremia Code(s): R78.81 - BACTEREMIA Status: Acute (2) Physical deconditioning Code(s): R53.81 - OTHER MALAISE Status: Acute (3) ESRD (end stage renal disease) on dialysis Code(s): N18.6 - END STAGE RENAL DISEASE; Z99.2 - DEPENDENCE ON RENAL DIALYSIS Status: Chronic (4) HTN (hypertension) Code(s): I10 - ESSENTIAL (PRIMARY) HYPERTENSION Status: Chronic Qualifiers: Hypertension type: essential hypertension Qualified Code(s): I10 - Essential (primary) hypertension - Plan * MSSA Bacteremia- continue IV Vancomycin and Levaquin, p.o. * ESRD- stable * HTN- blood pressure is stable * He is stable for discharge to the [facility]
[2019-04-08] MEDS: Acetaminophen 325 MG TAB PO PRN (18:18)
--- NOTE | 2019-04-09 02:26 | DIS ---
DATE OF ADMISSION: 03/29/2019 DATE OF DISCHARGE: 04/08/2019 DISCHARGE DISPOSITION: To the [facility]. DISCHARGE DIAGNOSES: 1. Methicillin-susceptible Staphylococcus aureus bacteremia. 2. 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 3. End-stage renal disease, on hemodialysis. 4. Hypertension. 5. 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 DISCHARGE MEDICATIONS: The patient is going to be on, 1. IV vancomycin sliding scale until May 22. 2. Ciprofloxacin 250 mg p.o. b.i.d. until May 22. 3. Continue tramadol 50 mg q.12 as needed. 4. ProAmatine 10 mg Saturday, Saturday, and Saturday. 5. Gabapentin 300 mg t.i.d. 6. Epogen 10,000 units Saturday, Saturday, Saturday. 7. Renvela 4000 mg t.i.d. 8. Omeprazole 20 mg daily. 9. Heparin twice a day, discontinue. 10. daily. PROCEDURES DONE DURING ADMISSION: The patient had an AV shuntogram. There was successful tPA resolution of the clotted AV fistula, restoring flow. The patient had a CT scan of the chest showing bibasilar consolidation, right greater than left, suspicious for pneumonia. The patient also had an echocardiogram, in which the ejection fraction was estimated at 60% to 65%. There was some mild mitral regurgitation present. There was no evidence of mass or vegetations. The patient had a transesophageal echo, which was negative for any vegetations and the valves were normal. The patient had an MRI of the cervical spine, showing a possibility of osteomyelitis at the cervical medullary junction at C7 and T1. The patient had a CT scan of the upper extremity showing right upper extremity AV dialysis graft and focal area of intimal thickening with severe narrowing of the distal aspect of the outflow graft. CODE STATUS: Full code. ALLERGIES: TO AMOXICILLIN AND CEPHALOSPORINS. HOSPITAL COURSE: Mr. Mcgraw is a pleasant 53-year-old gentleman, who was admitted to the hospital in transfer from [facility] for a clotted and possibly infected AV fistula. He underwent AV shuntogram with angioplasty and restored flow to the shunt. An echocardiogram was done to rule out endocarditis. He had both transthoracic as well as transesophageal echo, which was negative. The source of the infection was either from a pulmonary infection with pneumonia or it could be the result of an infected graft. He was evaluated by Dr. Washington, who helped with his management. The decision was made to place him on approximately six weeks' treatment of IV vancomycin as well as oral Levaquin. The decision was made based on the patient's strong allergy to penicillin antibiotics. The patient did well over the course of the next several days and was able to be discharged to the [facility] on 04/08/2019. Job ID: [id number]
[2019-04-09 07:49] VITALS: BP 113/68; TEMP 99.2
[2019-04-09] MEDS: Cinacalcet HCl 30 MG TAB PO SCH (07:54)
[2019-04-09] MEDS: Sevelamer Carbonate 800 MG TAB PO SCH ×2 (07:54→12:42)
[2019-04-09] MEDS: Heparin 5,000 UNITS/ML VIAL SC SCH (07:55)
[2019-04-09] MEDS: Gabapentin 300 MG CAP PO SCH (07:55)
[2019-04-09 08:58] LABS: Anion Gap 17 mmol/L (10-20); BUN (Urea Nitrogen) 36 mg/dL (8.4-25.7); Calc. Creatinine Clearance 14 mL/min (70-130); Calcium 7.9 mg/dL (7.8-10.44); Carbon Dioxide 26 mmol/L (22-29); Chloride 96 mmol/L (98-107); Estimated GFR-MDRD 7; Glucose 86 mg/dL (70-105); Potassium 4.3 mmol/L (3.5-5.1); Sodium 135 mmol/L (136-145)
--- NOTE | 2019-04-09 10:03 | PRG ---
DATE OF SERVICE: 04/09/2019 SUBJECTIVE: A 53-year-old male being seen for end-stage renal disease. The patient denies any nausea, vomiting, or chest pain. OBJECTIVE: CONSTITUTIONAL: The patient is awake and alert. VITAL SIGNS: Pulse 75, breathing 16, blood pressure 113/68. GENERAL APPEARANCE AND MENTAL STATUS: Fair. HEAD/NECK: Normocephalic. Atraumatic. EYES: EOMI. No deformity. EARS: Clear. No ulcers. NOSE: Intact. No lesions. MOUTH: Clear. No discharge. THROAT: Clear. No exudate. LUNGS: Clear. No crackles. CARDIAC: S1, S2. No rub. ABDOMEN: Benign. Bowel sounds positive. GENITALIA/RECTUM: Gallardo absent. BACK/EXTREMITIES: Edema 0+. NEUROLOGICAL: Alert and motor intact. SKIN: LYMPHATICS: LABORATORY DATA: Reviewed. ASSESSMENT AND PLAN: 1. Stage 6 chronic kidney disease, plan dialysis. 2. Hypertension, stable. 3. Anemia. We will recheck hemoglobin. . Job ID: [id number]
--- NOTE | 2019-04-09 14:31 | PDOC.HOSPP ---
- Subjective Encounter Date: 04/09/19 Encounter Time: 14:29 Subjective: Mr. Mcgraw was seen today in follow-up of MSSA bacteremia. He does not have any new complaints. - Objective Vital Signs & Weight: Vital Signs (12 hours) Temp Pulse Resp BP Pulse Ox 04/09/19 08:00 96 04/09/19 07:46 99.2 F 79 16 113/68 96 Weight Admit Weight 199 lb 15.348 oz Weight 194 lb Most Recent Monitor Data Heart Rate from ECG 74 NIBP 109/64 Respiration from ECG 16 I&O: 04/08/19 04/09/19 04/10/19 06:59 06:59 06:59 Intake Total 1410 1020 480 Output Total 0 1700 Balance 1410 -680 480 Result Diagrams: 04/08/19 07:23 04/09/19 07:56 Hospitalist ROS - Medication Medications: Active Medications Generic Name Dose Route Start Last Admin Trade Name Freq PRN Reason Stop Dose Admin Acetaminophen 650 mg 03/30/19 09:54 04/08/19 18:18 Tylenol PO 650 mg Q4H PRN Administration Headache/Fever/Mild Pain (1-3) Cinacalcet 60 mg 03/30/19 09:00 04/09/19 07:54 Sensipar PO 60 mg DAILY ASHLEY Administration Epoetin Randy-epbx 10,000 unit 04/03/19 11:31 04/08/19 12:50 Retacrit IVP 10,000 unit MoWeFr ASHLEY Administration Gabapentin 300 mg 04/08/19 15:00 04/09/19 07:55 Neurontin PO 300 mg TID ASHLEY Administration Heparin Sodium (Porcine) 5,000 units 03/30/19 09:00 04/09/19 07:55 Heparin SC 5,000 units Q12HR ASHLEY Administration Vancomycin HCl 750 mg/ Sodium 250 mls @ 250 mls/hr 03/31/19 07:45 04/06/19 11 :06 Chloride IVPB 250 mls WILLCALL ASHLEY Administration Vancomycin HCl 500 mg/ Sodium 100 mls @ 100 mls/hr 03/31/19 07:45 04/01/19 09 :54 Chloride IVPB 100 mls WILLCALL ASHLEY Administration Levofloxacin 500 mg 04/01/19 18:00 04/06/19 17:22 Levaquin PO 500 mg Q2D ASHLEY Administration Midodrine 10 mg 03/30/19 09:00 04/08/19 14:11 Proamatine PO 10 mg MoWeFr@0900 ASHLEY Administration Ondansetron HCl 4 mg 03/30/19 09:54 04/05/19 23:33 Zofran IVP 4 mg Q6H PRN Administration Nausea/Vomiting Pantoprazole Sodium 40 mg 03/30/19 09:00 04/09/19 07:54 Protonix PO 40 mg DAILY ASHLEY Administration Senna/Docusate Sodium 2 tab 03/30/19 09:54 04/07/19 21:53 Senokot S PO 2 tab BIDPRN PRN Administration Constipation Sevelamer Carbonate 4,000 mg 04/04/19 08:00 04/09/19 12:42 Renvela PO 4,000 mg TID-WM ASHLEY Administration Tramadol HCl 50 mg 04/06/19 13:57 04/06/19 17:22 Ultram PO 50 mg Q12H PRN Administration Moderate Pain (4-6) - Exam Eye: PERRL Heart: RRR, no murmur, no gallops, no rubs, normal peripheral pulses Respiratory: CTAB, no wheezes, no rales, no ronchi, normal chest expansion Gastrointestinal: soft, non-tender, non-distended, normal bowel sounds, no palpable masses, no hepatomegaly, no splenomegaly Extremities: no cyanosis, no clubbing, no edema Hosp A/P (1) MSSA bacteremia Code(s): R78.81 - BACTEREMIA Status: Acute (2) Physical deconditioning Code(s): R53.81 - OTHER MALAISE Status: Acute (3) ESRD (end stage renal disease) on dialysis Code(s): N18.6 - END STAGE RENAL DISEASE; Z99.2 - DEPENDENCE ON RENAL DIALYSIS Status: Chronic (4) HTN (hypertension) Code(s): I10 - ESSENTIAL (PRIMARY) HYPERTENSION Status: Chronic Qualifiers: Hypertension type: essential hypertension Qualified Code(s): I10 - Essential (primary) hypertension - Plan * MSSA Bacteremia- stable on Vancomycin IV and Levaquin * He now has a bed in the [facility]- will transfer * ESRD- stable * HTN- blood pressure is stable * He is stable for discharge to the [facility]
== END 2019-04-09 15:38 | DRG 853 ==
LOC: 2NO 14:22 → T4-B 04-02 23:43
PROVIDERS: ADMIT Internal Medicine; ATTEND Internal Medicine
PROC: 037Y3ZZ Dilation of Upper Artery, Percutaneous Approach (ICD-10-PCS; principal; 2019-03-30)
PROC: B31N1ZZ Fluoroscopy of Other Upper Arteries using Low Osmolar Contrast (ICD-10-PCS; 2019-03-30)
PROC: 3E03317 Introduction of Other Thrombolytic into Peripheral Vein, Percutaneous Approach (ICD-10-PCS; 2019-03-30)
PROC: 5A1D70Z Performance of Urinary Filtration, Intermittent, Less than 6 Hours Per Day (ICD-10-PCS; 2019-04-08)
DX: A41.01 Sepsis due to Methicillin susceptible Staphylococcus aureus (principal); N18.6 End stage renal disease; G93.41 Metabolic encephalopathy; J18.9 Pneumonia, unspecified organism; T82.868A Thrombosis due to vascular prosthetic devices, implants and grafts, initial encounter; I12.0 Hypertensive chronic kidney disease with stage 5 chronic kidney disease or end stage renal disease; E87.2 Acidosis; E87.1 Hypo-osmolality and hyponatremia; E87.5 Hyperkalemia; E66.9 Obesity, unspecified; D63.1 Anemia in chronic kidney disease; K52.9 Noninfective gastroenteritis and colitis, unspecified; E11.22 Type 2 diabetes mellitus with diabetic chronic kidney disease; E11.40 Type 2 diabetes mellitus with diabetic neuropathy, unspecified; M46.42 Discitis, unspecified, cervical region; R53.81 Other malaise; Y84.1 Kidney dialysis as the cause of abnormal reaction of the patient, or of later complication, without mention of misadventure at the time of the procedure; Z99.2 Dependence on renal dialysis; Z88.1 Allergy status to other antibiotic agents; Z88.8 Allergy status to other drugs, medicaments and biological substances; Z68.31 Body mass index [BMI] 31.0-31.9, adult; Z79.4 Long term (current) use of insulin; D63.8 Anemia in other chronic diseases classified elsewhere
CPT/HCPCS: 36415; 36416; 36430; 36901; 36902; 71045; 71250; 72141; 76942; 80048; 80053; 80069; 80202; 85014; 85018; 85025; 86850; 86900; 86901; 87040; 87340; 90935; 92960; 93306; 93312; 93970; C1725; G0257; G0365; J1644; J1956; J2405; J2704; J3370; J3490; J7050; P9016; Q5105; Q9967